=== PATIENT | female | born 1940 | race Caucasian/White ===

== ENCOUNTER 2018-09-13 12:32 | Inpatient (IN) | payer OTHER, MEDICARE, MEDICAID ==
[2018-09-13] MEDS: Nitroglycerin 50mg in D5W 50 MG/250 ML BOTTLE IV ONE ×2 (12:45→21:34)
[2018-09-13 13:06] VITALS: BMI 20.3
[2018-09-13] MEDS ORDERED: Eptifibatide 0.75 mg/ml 75 MG/100 ML BAG IV SCH (13:15)
[2018-09-13] MEDS ORDERED: Nitroglycerin 50mg in D5W 50 MG/250 ML BOTTLE IV ONE (13:18)
[2018-09-13] MEDS ORDERED: Sodium Chloride 0.9% 500 ML IV SCH (13:30)
[2018-09-13] MEDS ORDERED: Dextrose 50% SYRINGE Inj (50 ml) IV PRN (13:32)
[2018-09-13] MEDS ORDERED: Glucagon Recombinant 1 mg Inj IM PRN (13:32)
[2018-09-13 14:05] LABS: HEMOGLOBIN 14.4 g/dL (12.0-16.0); MEAN CELL VOLUME 89.5 fl (81.0-99.0); MEAN CORPUSCULAR HEMOGLOBIN 29.7 pg (27.0-31.0); MEAN CORPUSCULAR HGB CONC 33.1 g/dL (33.0-37.0); RBC 4.86 Mil/uL (3.80-5.20); RED CELL DISTRIBUTION WIDTH 14.2 % (11.5-14.5); WHITE BLOOD COUNT 23.5 K/uL (4.8-10.8)
[2018-09-13 14:17] LABS: ALB/GLOB RATIO 1.2 (1.0-2.1); CALCIUM 8.3 mg/dL (8.4-10.2)
[2018-09-13] MEDS ORDERED: Sodium Chloride 0.9% 1,000 ML IV SCH (14:30)
[2018-09-13] MEDS ORDERED: Propofol 10 mg/ml 1,000 MG/100 ML VIAL IV SCH (15:00)
--- NOTE | 2018-09-13 15:03 | RAD ---
Date of service: 09/13/2018 HISTORY: intubated, pulmonary edema COMPARISON: None available. TECHNIQUE: 1 view obtained. FINDINGS: LUNGS: Endotracheal tube is placed 4.7 cm above the osmar. Advancement 2-3 cm antegrade is advised. It terminates essentially at the upper level of the clavicles at this time. An orogastric tube is identified entering into the left upper quadrant abdomen with the termination off the image. Hazy density seen at the mid to inferior right lung zone and in the retrocardiac left base suspicious for pneumonia. Atelectasis may be present the left base instead. PLEURA: Borderline bilateral pleural effusion. No pneumothorax bilaterally. CARDIOVASCULAR: Calcific atherosclerotic changes are seen related to the thoracic aorta. Mild cardiomegaly is not excluded. [id number] pulmonary vascular congestion is difficult to exclude. OSSEOUS STRUCTURES: No significant abnormalities. VISUALIZED UPPER ABDOMEN: Normal. OTHER FINDINGS: None. IMPRESSION: Bilateral infiltrates are suggested at the bases though atelectasis may be present at the left. Mid right sided pulmonary infiltrate evident. Limited underlying pulmonary vascular congestion is not excluded. Further clinical correlation is advised. ET tube terminates well above the osmar and advancement 2-3 cm is advised follow-up by confirmation radiography.
[2018-09-13] MEDS ORDERED: Pneumococcal 23-Valent Vaccine IM ONE (15:29)
[2018-09-13] MEDS: Insulin Regular 100 units/ml SC SCH ×2 (16:35→23:00)
[2018-09-13] MEDS: Eptifibatide 0.75 mg/ml 75 MG/100 ML BAG IV SCH (16:51)
[2018-09-13 17:45] LABS: ABG ALLEN TEST YES; ARTERIAL BLOOD GAS HCO3 19.6 mmol/L (21-28); ARTERIAL BLOOD GAS O2 SAT 99.2 % (95-98); ARTERIAL BLOOD GAS PCO2 45 mm/Hg (35-45); ARTERIAL BLOOD GAS PH 7.26 (7.35-7.45); ARTERIAL BLOOD GAS PO2 116 mm/Hg (80-100); ARTERIAL BLOOD GAS TCO2 21.6 mmol/L (22-28)
--- NOTE | 2018-09-13 19:46 | PN ---
DATE: 09/13/2018 LOCATION: The patient in ICU, bed 423. TIME SPENT: 45 minutes. The patient is seen and evaluated at the bedside. Past medical, surgical, family, social history reviewed and discussed with family members. REASON FOR ADMISSION: Transferred from [facility] for management of hypothermia, status post cardiac arrest sustained secondary to acute NJ and pulmonary edema. SUBJECTIVE: An 78-year-old female with history significant for hypertension on amlodipine, labetalol and valsartan. Pressure well controlled on the above regimen. Complained of acutely short of breath in her home witnessed by her daughter. Daughter called the ambulance, on arrival EMS noted the patient to be unresponsive and in asystole. The patient was subsequently transported to emergency room at [facility] where initial evaluation showed her to be afebrile and hypertensive. Chest x-ray with florid pulmonary edema, troponin was elevated, BNP was noted to be high. EKG showed acute ST-elevation NJ. Code Heart was called. The patient underwent cardiac catheterization. 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 Underwent angioplasty of the two vessels and started on Integrilin, aspirin, Plavix, Tridil drip and transferred to [facility] intubated for hypothermia protocol. PAST MEDICAL HISTORY: As noted above. PAST SURGICAL HISTORY: Unremarkable. MEDICATIONS AT HOME: Noted the amlodipine, labetalol, and valsartan. In [facility], aspirin, Plavix, sodium chloride at 50 mL per hour, Tridil drip, Integrilin drip at 9 mL/hour. ALLERGIES: NONE DOCUMENTED. SOCIAL HISTORY: Unremarkable. PHYSICAL EXAMINATION: GENERAL: Elderly female, medium built, intubated orally, placed on mechanical ventilation. AC 20, 500, 100%, and PEEP of 5. Observed rate 31, observed minute ventilation 480, minute ventilation 14 liters, saturation 96%, peak airway pressure of 30, mean airway pressure of 9, end-tidal CO2 of 27. Sedated on Diprivan drip. VITAL SIGNS: Temperature 95.7, heart rate 105, blood pressure 134/89, mean arterial pressure 104, respiratory rate 30, oxygen saturation 95%. Intake 275, output 480, negative balance 205. Weight 130 pounds. HEAD, EYES, EARS, NOSE AND THROAT: Pupils are equal, round, reacting to light and accommodation. Extraocular muscles intact. Conjunctivae pink. Sclerae are white. NECK: Supple. Trachea central. CHEST: Bilateral breath sounds. Clear to auscultation anteriorly and laterally. HEART: Rhythm regular. S1, S2 normal intensity. No S3, S4 gallop. No audible murmur. ABDOMEN: Bowel sounds are present. Soft. Liver and spleen not palpable. Bladder not distended. EXTREMITIES: No clubbing, cyanosis or edema. NEUROLOGIC: Intermittently opens eyes, pupils 2 to 3 mm and poorly reactive. On sternal rub noted decorticate posturing. Minimal gag reflex on deep suctioning of the endotracheal tube. CURRENT MEDICATIONS: Aspirin 81 mg daily, Plavix 75 mg daily, Integrilin as per protocol, Accu-Chek with regular insulin coverage, Lopressor 25 mg p.o. every 12 hours, nitroglycerin drip at 5 mcg/minute, Protonix 40 daily, Diprivan at titrating to [place] scale 2. LABORATORY DATA: WBC 23.5, hemoglobin 14.4, hematocrit of 43.5, platelet count of 240. SMA-7: Sodium 135, potassium 3.8, chloride 99, CO2 of 19, blood urea nitrogen 18, creatinine 1.1, random glucose 222, calcium 8.3, magnesium 2, total bilirubin of 0.6, AST 1722, ALT 239, alkaline phosphatase 150, total protein 7.5, albumin of 4. TSH third-generation 4.7. Microbiology, none reported. Chest x-ray, endotracheal tube 4.7 cm above the osmar, repositioned, pushing down to 23 cm at lip level. Hazy density seen at the mid to inferior right lung zone and in the retrocardiac left base suspicious for pneumonia. Atelectasis may be present at the left base. EKG showed ST-segment elevation in anterior and lateral leads. Troponin elevated. IMPRESSION: 1. Neurologic: Status post cardiac arrest. Found unresponsive, asystolic in the field. 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 Noted to have minimal gag reflex. Pupils slight reactive, sluggish, decorticate posturing noted on sternal rub. 2. Pulmonary: Hypoxic respiratory failure, acute pulmonary edema, intubated, placed on mechanical ventilation. Lasix 20 mg intravenous push x1. 3. Cardiac: Status post cardiac arrest, acute anterolateral ST-segment elevation, status post code heart cath shows left anterior descending and left circumflex occlusion, status post angioplasty. On aspirin, Plavix, Integrilin, and Tridil. 4. Gastrointestinal: Elevated liver enzymes secondary to possible ischemic hepatitis, status post cardiac arrest. 5. Renal: No acute issues noted. Monitor for further renal compromise. Continue intravenous hydration with normal saline at 50 mL/hour. 6. Hematology: Leukocytosis reactive versus the infarction, suspect aspiration pneumonia given the vomiting preceding the cardiac arrest. We will initiate Zosyn 3.375 g IV every 6 hours. Keep head of bed 30 degrees up, sedate, monitor ABG, maintain pCO2 around 30. Continue sedation. DVT prophylaxis. Continue hypothermia protocol for the next 24 hours. Geovanny Wise MD
[2018-09-13] MEDS ORDERED: Sodium Chloride 0.9% 250 ML IV SCH (20:00)
[2018-09-13] MEDS: Piperacillin/Tazobact 3.375 GM in Sodium Chloride 0.9% 100 ML IVPB SCH (21:09)
[2018-09-13 21:48] LABS: ABG ALLEN TEST YES; ARTERIAL BLOOD GAS HCO3 19.5 mmol/L (21-28); ARTERIAL BLOOD GAS HEMOGLOBIN 12.3 g/dL (11.7-17.4); ARTERIAL BLOOD GAS O2 CAPACITY 17.2 mL/dL (16-24); ARTERIAL BLOOD GAS PCO2 43 mm/Hg (35-45); ARTERIAL BLOOD GAS PH 7.27 (7.35-7.45); ARTERIAL BLOOD GAS PO2 129 mm/Hg (80-100)
[2018-09-13] MEDS: Lactated Ringer's 1,000 ML IV SCH (22:15)
[2018-09-14] MEDS: Eptifibatide 0.75 mg/ml 75 MG/100 ML BAG IV SCH ×3 (03:00→23:04)
--- NOTE | 2018-09-14 03:55 | PCM.PROC ---
Procedures Attestation:: I certify that I have explained the specified Operation(s) or Procedure(s), risks, benefits and reasonable alternatives to the Patient and/or other person responsible. The opportunity was given to ask questions and all questions answered - Central Line Placement Left Femoral Triple Lumen Catheter Aseptic technique was employed throughout the procedure: Hand Hygiene done prior to procedure, Full sterile barriers (mask, hair cover, sterile gown, sterile gloves), Full body sterile drape, Chloraprep Antiseptic: 2 minute prep for Femoral CVP Time Out Performed: Yes Pt. Placed on Pulse Ox Monitor: Yes Central Line Prep: Chlorhexidine-Alcohol Combination Local Anesthesia Used: Lidocaine 2% Amount of Anesthesia Used (mls): 3 Ultrasound Used for Placement: Yes Central Line Lumen Inserted: triple Post Procedure: Sutured in Place, Good Blood Return, All Ports Aspirated, Flushed, Capped, Sterile Dressing Applied Secured by: Suture Post procedure dressing: Clear vapor permeable Post Procedure X-Ray: Yes Patient Tolerated Procedure: Well Immediate Complications: None
[2018-09-14] MEDS: Piperacillin/Tazobact 3.375 GM in Sodium Chloride 0.9% 100 ML IVPB SCH ×4 (04:00→21:07)
[2018-09-14 04:25] LABS: ABG ALLEN TEST YES; ARTERIAL BLOOD GAS HCO3 14.5 mmol/L (21-28); ARTERIAL BLOOD GAS HEMOGLOBIN 11.5 g/dL (11.7-17.4); ARTERIAL BLOOD GAS O2 CAPACITY 16.1 mL/dL (16-24); ARTERIAL BLOOD GAS O2 CONTENT 15.9 ML/dL (15-23); ARTERIAL BLOOD GAS O2 SAT 98.5 % (95-98); ARTERIAL BLOOD GAS PCO2 35 mm/Hg (35-45); ARTERIAL BLOOD GAS PO2 120 mm/Hg (80-100); ARTERIAL BLOOD GAS TCO2 14.8 mmol/L (22-28)
[2018-09-14 05:25] LABS: ALBUMIN 2.6 g/dL (3.5-5.0); BILIRUBIN,DIRECT 0.3 mg/ml (0.0-0.4); CALCIUM 7.8 mg/dL (8.4-10.2)
[2018-09-14 06:15] LABS: ABG ALLEN TEST YES; ARTERIAL BLOOD GAS HCO3 14.7 mmol/L (21-28); ARTERIAL BLOOD GAS HEMOGLOBIN 11.6 g/dL (11.7-17.4); ARTERIAL BLOOD GAS O2 CAPACITY 16.4 mL/dL (16-24); ARTERIAL BLOOD GAS O2 CONTENT 16.3 ML/dL (15-23); ARTERIAL BLOOD GAS O2 SAT 99.5 % (95-98); ARTERIAL BLOOD GAS PCO2 28 mm/Hg (35-45); ARTERIAL BLOOD GAS PH 7.26 (7.35-7.45); ARTERIAL BLOOD GAS PO2 177 mm/Hg (80-100); ARTERIAL BLOOD GAS TCO2 13.5 mmol/L (22-28)
[2018-09-14] MEDS: Lactated Ringer's 1,000 ML IV SCH (06:15)
[2018-09-14] MEDS: Insulin Regular 100 units/ml SC SCH ×4 (06:18→22:06)
--- NOTE | 2018-09-14 06:33 | CP.PCM.PN ---
Subjective - Date & Time of Evaluation Date of Evaluation: 09/13/18 Time of Evaluation: 11:30 - Subjective Subjective: This evening, patient became extremely bradycardic (to 30s) and hypotensive (SBP 60s). Discussed placement of central line to initiate pressors with daughter, who is in agreement with procedure. In preparing to do procedure, because pat ient became extremely bradycardic and hypotensive, 1 amp of epinephrine was given. A/P: Place L femoral TLC, initiate levophed. Stop Nitro gtt. Stop metoprolol. Objective - Vital Signs/Intake and Output Vital Signs (last 24 hours): Temp Pulse Resp BP Pulse Ox 93.2 F L 90 33 H 133/73 100 09/13/18 20:30 09/13/18 21:24 09/13/18 20:30 09/13/18 21:24 09/13/18 20:30 Intake and Output: 09/13/18 09/14/18 18:59 06:59 Intake Total 725 106 Output Total 515 10 Balance 210 96 - Medications Medications: Current Medications Aspirin (Aspirin Chewable) 81 mg PO DAILY REPLACED BY [facility] Clopidogrel Bisulfate (Plavix) 75 mg PO DAILY REPLACED BY [facility] Dextrose (Dextrose 50% Inj) 0 ml IV STAT PRN; Protocol PRN Reason: Hypoglycemia Protocol Dextrose (Glutose 15) 0 gm PO ONCE PRN; Protocol PRN Reason: Hypoglycemia Protocol Glucagon (Glucagen Diagnostic Kit) 0 mg IM STAT PRN; Protocol PRN Reason: Hypoglycemia Protocol Propofol (Diprivan) 1,000 mg in 100 mls @ 1.769 mls/hr IV .Q24H REPLACED BY [facility]; Protocol Stop: 09/14/18 14:56 Last Admin: 09/13/18 15:00 Dose: 5 mcg/kg/min, 1.769 mls/hr Eptifibatide (Integrilin) 75 mg in 100 mls @ 9.435 mls/hr IV .[id number] REPLACED BY [facility]; Protocol Last Admin: 09/14/18 03:00 Dose: 9.435 mls/hr Piperacillin Sod/Tazobactam (Sod 3.375 gm/ Sodium Chloride) 100 mls @ 100 mls/hr IVPB Q6 THU; Protocol Last Admin: 09/14/18 04:00 Dose: 100 mls/hr Sodium Chloride (Sodium Chloride 0.9%) 250 mls @ 250 mls/hr IV .Q1H THU Stop: 09/14/18 19:54 Last Admin: 09/13/18 20:00 Dose: 250 mls/hr Lactated Ringer's (Lactated Ringer's) 1,000 mls @ 150 mls/hr IV .[id number] THU Last Admin: 09/14/18 06:15 Dose: 150 mls/hr Norepinephrine Bitartrate 8 mg (/ Dextrose) 258 mls @ 19.35 mls/hr IV .[id number] ONE; Protocol Stop: 09/14/18 19:42 Insulin Human Regular (Humulin R) 2 units SC ACCU-CHECK REPLACED BY [facility]; Protocol Last Admin: 09/14/18 06:18 Dose: 1 unit Pantoprazole Sodium (Protonix Inj) 40 mg IVP DAILY REPLACED BY [facility] Last Admin: 09/13/18 15:37 Dose: 40 mg - Labs Labs: 09/13/18 13:50 09/14/18 00:20 PT Cancelled 09/13/18 00:25 INR Cancelled 09/13/18 00:25 APTT Cancelled 09/13/18 00:25
[2018-09-14 06:39] LABS: BASO % 0.1 % (0.0-2.0); HEMOGLOBIN 11.4 g/dL (12.0-16.0); LYMPH # 1.8 K/uL (1.0-4.3); LYMPH % 8.7 % (20.0-40.0); MEAN CELL VOLUME 88.8 fl (81.0-99.0); MEAN CORPUSCULAR HEMOGLOBIN 29.1 pg (27.0-31.0); MEAN CORPUSCULAR HGB CONC 32.8 g/dL (33.0-37.0); MEAN PLATELET VOLUME 10.1 fl (7.2-11.7); MONO # 0.7 K/uL (0.0-0.8); MONO % 3.2 % (0.0-10.0); NEUT # 17.8 K/uL (1.8-7.0); PLATELET COUNT 163 K/uL (130-400); RBC 3.91 Mil/uL (3.80-5.20); RED CELL DISTRIBUTION WIDTH 14.1 % (11.5-14.5); WHITE BLOOD COUNT 20.2 K/uL (4.8-10.8)
[2018-09-14 06:44] LABS: INR 1.2; PROTHROMBIN TIME 13.4 Seconds (9.8-13.1)
[2018-09-14 06:47] LABS: PARTIAL THROMBOPLASTIN TIME 33.5 Seconds (25.6-37.1)
[2018-09-14 07:17] LABS: BASO % 0.2 % (0.0-2.0); HEMOGLOBIN 10.9 g/dL (12.0-16.0); LYMPH # 2.3 K/uL (1.0-4.3); LYMPH % 12.2 % (20.0-40.0); MEAN CELL VOLUME 90.7 fl (81.0-99.0); MEAN CORPUSCULAR HEMOGLOBIN 28.6 pg (27.0-31.0); MEAN CORPUSCULAR HGB CONC 31.6 g/dL (33.0-37.0); MEAN PLATELET VOLUME 10.2 fl (7.2-11.7); MONO # 0.6 K/uL (0.0-0.8); MONO % 3.3 % (0.0-10.0); NEUT # 15.8 K/uL (1.8-7.0); NEUT % 84.3 % (50.0-75.0); RBC 3.81 Mil/uL (3.80-5.20); WHITE BLOOD COUNT 18.7 K/uL (4.8-10.8)
[2018-09-14 07:29] LABS: INR 1.2; PARTIAL THROMBOPLASTIN TIME 38.1 Seconds (25.6-37.1); PROTHROMBIN TIME 13.2 Seconds (9.8-13.1)
[2018-09-14 07:34] LABS: ALBUMIN 2.9 g/dL (3.5-5.0); CALCIUM 8.2 mg/dL (8.4-10.2)
[2018-09-14 08:11] LABS: LYMPHOCYTE 6 % (20-50); MONOCYTE 2 % (0-10); NEUTROPHIL 92 % (42-75); PLATELET ESTIMATE NORMAL (NORMAL); TOTAL CELLS COUNTED 100
[2018-09-14 08:12] LABS: ANISOCYTOSIS SLIGHT; LARGE PLATELETS PRESENT; OVALOCYTES MODERATE
--- NOTE | 2018-09-14 10:10 | CP.CCUPN ---
<Jahaira Hickey - Last Filed: 09/14/18 16:14> CCU Subjective - Physician Review Events Since Last Encounter (Free Text): Patient was seen/examined this am and discussed in rounds. 78 yo F with hx controlled htn (as per family), in ICU s/p cardiac arrest and cardiac cath yesterday morning at [facility], currently undergoing hypothermia protocol. VBG done 10 am today showed venous saturation of O2 low at 22.4. Last troponin 6 am 484 (midnight trop was 659) Cardiology consulted on the case. Physical Exam: Gen: elderly female, intubated and sedated with proporol, with cooling blanket and cooling wraps on body; unresponsive to verbal/tactile and painful stimuli HEENT: pupils equal and reactive, intubated Resp: bilateral breath sounds present CV: S1,S2, bradycardic Abdomen: soft, nontender Ext: no edema appreciated Vent Settings: AC PRVC RR 24, TV 500, FiO2 80%, PEEP 5 I/O: positive balance with low urine output - 3-10 ml/hr since 2 pm yesterday Assessment/Plan: s/p Cardiac Arrest - S/p cardiac arrest at home on 09/13/18; ROSC achieved; taken to laboratory machinist at [facility] with 2 stents deployed - Hypothermia protocol in progress; due to finish 24 hours at 1 pm , plan to stop cooling 1 pm - Troponin at 1 pm - VBG done 10 am showed sVO2 22.4 - start dobutamine at 5 mcg/hr and repeat VBG at 130 pm - Plavix, aspirin - Integrillin - On levophed - Prognosis remains guarded. Discussed plan to stop cooling 1 pm with family at bedside. - Re-eval of neuro status after rewarming. Pulmonary Edema - Lasix 60 mg IVP once - Echocardiogram today - Hold fluids Oliguria -Lasix 60 mg IVP Leukocytosis - May be reactive vs infectious - Continue zosyn Prophylaxis - Protonix IVP daily - SCDs Pt seen/discussed w/ Dr. Rocha. CCU Objective - Vital Signs / Intake & Output Vital Signs (Last 4 hours): Vital Signs Temp Temp Pulse Pulse Resp Resp BP 09/14/18 10:00 91.6 F L 42 L 25 H 122/92 H 09/14/18 09:21 100/67 09/14/18 08:56 93.2 F L 54 L 32 H 100/67 09/14/18 08:00 93.2 F L 93.2 F L 57 L 59 L 33 H 27 H 105/54 L 09/14/18 07:00 93.2 F L 60 33 H 100/54 L BP Pulse Ox 09/14/18 10:00 94 L 09/14/18 09:21 09/14/18 08:56 94 L 09/14/18 08:00 105/54 L 95 09/14/18 07:00 96 Intake and Output (Last 8hrs): Intake & Output 09/13/18 09/14/18 09/14/18 22:59 06:59 14:59 Intake Total 875 1200 708 Output Total 95 49 30 Balance 780 1151 678 Weight 143 lb 3.2 oz Intake: IV 775 1100 608 Intake, Piggyback 100 100 100 Output: Urine 95 49 30 Urethral (Scott) 95 49 30 - Medications Active Medications: Active Medications Generic Name Dose Route Start Last Admin Trade Name Freq PRN Reason Stop Dose Admin Aspirin 81 mg 09/14/18 09:00 09/14/18 08:12 Aspirin Chewable PO 81 mg DAILY THU Administration Clopidogrel Bisulfate 75 mg 09/14/18 09:00 09/14/18 08:12 Plavix PO 75 mg DAILY THU Administration Dextrose 0 ml 09/13/18 13:32 Dextrose 50% Inj IV STAT PRN Hypoglycemia Protocol Protocol Dextrose 0 gm 09/13/18 13:32 Glutose 15 PO ONCE PRN Hypoglycemia Protocol Protocol Glucagon 0 mg 09/13/18 13:32 Glucagen Diagnostic Kit IM STAT PRN Hypoglycemia Protocol Protocol Propofol 1,000 mg in 100 mls @ 1.769 mls/hr 09/13/18 15:00 09/13/18 15:00 Diprivan IV 09/14/18 14:56 5 mcg/kg/min .Q24H THU 1.769 mls/hr Administration Protocol 5 MCG/KG/MIN Eptifibatide 75 mg in 100 mls @ 9.435 mls/hr 09/13/18 16:15 09/14/18 03:00 Integrilin IV 9.435 mls/hr .[id number] THU Administration Protocol 2 MCG/KG/MIN Piperacillin Sod/Tazobactam 100 mls @ 100 mls/hr 09/13/18 22:00 09/14/18 09:00 Sod 3.375 gm/ Sodium Chloride IVPB 100 mls/hr Q6 THU Administration Protocol Sodium Chloride 250 mls @ 250 mls/hr 09/13/18 20:00 09/13/18 20:00 Sodium Chloride 0.9% IV 09/14/18 19:54 250 mls/hr .Q1H THU Administration Lactated Ringer's 1,000 mls @ 150 mls/hr 09/13/18 22:15 09/14/18 06:15 Lactated Ringer's IV 150 mls/hr .[id number] THU Administration Norepinephrine Bitartrate 8 mg 258 mls @ 19.35 mls/hr 09/14/18 06:23 09/14/18 09:19 / Dextrose IV 09/14/18 19:42 12.5 mcg/min .[id number] ONE 24.19 mls/hr Titration Protocol 10 MCG/MIN Insulin Human Regular 2 units 09/13/18 17:00 09/14/18 06:18 Humulin R SC 1 unit ACCU-CHECK THU Administration Protocol Pantoprazole Sodium 40 mg 09/13/18 13:30 09/14/18 08:06 Protonix Inj IVP 40 mg DAILY THU Administration - Patient Studies Lab Studies: Lab Studies 09/14/18 09/14/18 09/14/18 Range/Units 12:30 06:11 06:10 WBC RBC Hgb Hct MCV MCH MCHC RDW Plt Count MPV (7.2-11.7) fl Neut % (Auto) (50.0-75.0) % Lymph % (Auto) (20.0-40.0) % Baxter % (Auto) (0.0-10.0) % Eos % (Auto) (0.0-4.0) % Baso % (Auto) (0.0-2.0) % Neut # (Auto) (1.8-7.0) K/uL Lymph # (Auto) (1.0-4.3) K/uL Baxter # (Auto) (0.0-0.8) K/uL Eos # (Auto) (0.0-0.7) K/uL Baso # (Auto) (0.0-0.2) K/uL Neutrophils % (Manual) (42-75) % Lymphocytes % (Manual) (20-50) % Monocytes % (Manual) (0-10) % Platelet Estimate (NORMAL) Large Platelets Anisocytosis (manual) Macrocytosis (manual) Ovalocytes PT INR APTT pCO2 28 L (35-45) mm/Hg pO2 177 H (80-100) mm/Hg HCO3 14.7 L (21-28) mmol/L ABG pH 7.26 L (7.35-7.45) ABG Total CO2 13.5 L (22-28) mmol/L ABG O2 Saturation 99.5 H (95-98) % ABG O2 Content 16.3 (15-23) ML/dL ABG Base Excess -13.1 L (-2.0-3.0) mmol/L ABG Hemoglobin 11.6 L (11.7-17.4) g/dL ABG Carboxyhemoglobin 1.0 (0.5-1.5) % POC ABG HHb (Measured) 0.5 (0.0-5.0) % ABG Methemoglobin 1.1 (0.0-3.0) % ABG O2 Capacity 16.4 (16-24) mL/dL Davy Test Yes ABG Potassium (3.6-5.2) mmol/L A-a O2 Difference 501.0 mm/Hg Hgb O2 Saturation 97.4 (95.0-98.0) % Glucose (65-105) mg/dL Lactate (0.7-2.1) mmol/L Vent Mode A/c Mechanical Rate 24 FiO2 100.0 % Tidal Volume 500 PEEP 5 Crit Value Called To Crit Value Called By Crit Value Read Back Blood Gas Notified Time Sodium Potassium Chloride Carbon Dioxide Anion Gap BUN Creatinine Est GFR ( Amer) Est GFR (Non-Af Amer) Random Glucose Lactic Acid 7.6 H* Calcium Magnesium Total Bilirubin Direct Bilirubin AST ALT Alkaline Phosphatase Ammonia 25 (9-33) umol/L Troponin I Total Protein Albumin Globulin Albumin/Globulin Ratio TSH 3rd Generation (0.46-4.68) mIU/ML Arterial Blood Potassium (3.6-5.2) mmol/L 09/14/18 09/14/18 09/14/18 Range/Units 06:10 06:10 06:10 WBC 20.2 H RBC 3.91 Hgb 11.4 L Hct 34.7 MCV 88.8 MCH 29.1 MCHC 32.8 L RDW 14.1 Plt Count 163 MPV 10.1 (7.2-11.7) fl Neut % (Auto) 88.0 H (50.0-75.0) % Lymph % (Auto) 8.7 L (20.0-40.0) % Baxter % (Auto) 3.2 (0.0-10.0) % Eos % (Auto) 0.0 (0.0-4.0) % Baso % (Auto) 0.1 (0.0-2.0) % Neut # (Auto) 17.8 H (1.8-7.0) K/uL Lymph # (Auto) 1.8 (1.0-4.3) K/uL Baxter # (Auto) 0.7 (0.0-0.8) K/uL Eos # (Auto) 0.0 (0.0-0.7) K/uL Baso # (Auto) 0.0 (0.0-0.2) K/uL Neutrophils % (Manual) 92 H (42-75) % Lymphocytes % (Manual) 6 L (20-50) % Monocytes % (Manual) 2 (0-10) % Platelet Estimate Normal (NORMAL) Large Platelets Present Anisocytosis (manual) Slight Macrocytosis (manual) Slight Ovalocytes Moderate PT 13.4 H INR 1.2 APTT 33.5 pCO2 (35-45) mm/Hg pO2 (80-100) mm/Hg HCO3 (21-28) mmol/L ABG pH (7.35-7.45) ABG Total CO2 (22-28) mmol/L ABG O2 Saturation (95-98) % ABG O2 Content (15-23) ML/dL ABG Base Excess (-2.0-3.0) mmol/L ABG Hemoglobin (11.7-17.4) g/dL ABG Carboxyhemoglobin (0.5-1.5) % POC ABG HHb (Measured) (0.0-5.0) % ABG Methemoglobin (0.0-3.0) % ABG O2 Capacity (16-24) mL/dL Davy Test ABG Potassium (3.6-5.2) mmol/L A-a O2 Difference mm/Hg Hgb O2 Saturation (95.0-98.0) % Glucose (65-105) mg/dL Lactate (0.7-2.1) mmol/L Vent Mode Mechanical Rate FiO2 % Tidal Volume PEEP Crit Value Called To Crit Value Called By Crit Value Read Back Blood Gas Notified Time Sodium 129 L Potassium 4.9 Chloride 99 Carbon Dioxide 17 L Anion Gap 18 BUN 28 H Creatinine 1.7 H Est GFR ( Amer) 35 Est GFR (Non-Af Amer) 29 Random Glucose 125 H Lactic Acid Calcium 8.2 L Magnesium 2.0 Total Bilirubin 0.9 Direct Bilirubin 0.0 AST 1312 H ALT 188 H Alkaline Phosphatase 70 Ammonia (9-33) umol/L Troponin I 484.0000 H* Total Protein 5.7 L Albumin 2.9 L Globulin 2.8 Albumin/Globulin Ratio 1.0 TSH 3rd Generation (0.46-4.68) mIU/ML Arterial Blood Potassium (3.6-5.2) mmol/L 09/14/18 09/14/18 09/14/18 Range/Units 01:43 00:20 00:20 WBC RBC Hgb Hct MCV MCH MCHC RDW Plt Count MPV (7.2-11.7) fl Neut % (Auto) (50.0-75.0) % Lymph % (Auto) (20.0-40.0) % Baxter % (Auto) (0.0-10.0) % Eos % (Auto) (0.0-4.0) % Baso % (Auto) (0.0-2.0) % Neut # (Auto) (1.8-7.0) K/uL Lymph # (Auto) (1.0-4.3) K/uL Baxter # (Auto) (0.0-0.8) K/uL Eos # (Auto) (0.0-0.7) K/uL Baso # (Auto) (0.0-0.2) K/uL Neutrophils % (Manual) (42-75) % Lymphocytes % (Manual) (20-50) % Monocytes % (Manual) (0-10) % Platelet Estimate (NORMAL) Large Platelets Anisocytosis (manual) Macrocytosis (manual) Ovalocytes PT 13.2 H INR 1.2 APTT 38.1 H pCO2 35 (35-45) mm/Hg pO2 120 H (80-100) mm/Hg HCO3 14.5 L (21-28) mmol/L ABG pH 7.20 L (7.35-7.45) ABG Total CO2 14.8 L (22-28) mmol/L ABG O2 Saturation 98.5 H (95-98) % ABG O2 Content 15.9 (15-23) ML/dL ABG Base Excess -13.4 L (-2.0-3.0) mmol/L ABG Hemoglobin 11.5 L (11.7-17.4) g/dL ABG Carboxyhemoglobin 0.7 (0.5-1.5) % POC ABG HHb (Measured) 1.5 (0.0-5.0) % ABG Methemoglobin 0.9 (0.0-3.0) % ABG O2 Capacity 16.1 (16-24) mL/dL Davy Test Yes ABG Potassium (3.6-5.2) mmol/L A-a O2 Difference 549.0 mm/Hg Hgb O2 Saturation 97.0 (95.0-98.0) % Glucose (65-105) mg/dL Lactate (0.7-2.1) mmol/L Vent Mode A/c Mechanical Rate 24 FiO2 100.0 % Tidal Volume 500 PEEP 5 Crit Value Called To Dr kendall butler Crit Value Called By Jamie Crit Value Read Back Y Blood Gas Notified Time 200 Sodium Potassium Chloride Carbon Dioxide Anion Gap BUN Creatinine Est GFR ( Amer) Est GFR (Non-Af Amer) Random Glucose Lactic Acid 10.0 H* Calcium Magnesium Total Bilirubin Direct Bilirubin AST ALT Alkaline Phosphatase Ammonia (9-33) umol/L Troponin I Total Protein Albumin Globulin Albumin/Globulin Ratio TSH 3rd Generation (0.46-4.68) mIU/ML Arterial Blood Potassium (3.6-5.2) mmol/L 09/14/18 09/14/18 09/13/18 Range/Units 00:20 00:20 21:45 WBC 18.7 H RBC 3.81 Hgb 10.9 L D Hct 34.6 MCV 90.7 MCH 28.6 MCHC 31.6 L RDW 14.0 Plt Count 155 MPV 10.2 (7.2-11.7) fl Neut % (Auto) 84.3 H (50.0-75.0) % Lymph % (Auto) 12.2 L (20.0-40.0) % Baxter % (Auto) 3.3 (0.0-10.0) % Eos % (Auto) 0.0 (0.0-4.0) % Baso % (Auto) 0.2 (0.0-2.0) % Neut # (Auto) 15.8 H (1.8-7.0) K/uL Lymph # (Auto) 2.3 (1.0-4.3) K/uL Baxter # (Auto) 0.6 (0.0-0.8) K/uL Eos # (Auto) 0.0 (0.0-0.7) K/uL Baso # (Auto) 0.0 (0.0-0.2) K/uL Neutrophils % (Manual) (42-75) % Lymphocytes % (Manual) (20-50) % Monocytes % (Manual) (0-10) % Platelet Estimate (NORMAL) Large Platelets Anisocytosis (manual) Macrocytosis (manual) Ovalocytes PT INR APTT pCO2 43 (35-45) mm/Hg pO2 129 H (80-100) mm/Hg HCO3 19.5 L (21-28) mmol/L ABG pH 7.27 L (7.35-7.45) ABG Total CO2 21.0 L (22-28) mmol/L ABG O2 Saturation 99.0 H (95-98) % ABG O2 Content 17.0 (15-23) ML/dL ABG Base Excess -6.9 L (-2.0-3.0) mmol/L ABG Hemoglobin 12.3 (11.7-17.4) g/dL ABG Carboxyhemoglobin 0.9 (0.5-1.5) % POC ABG HHb (Measured) 1.0 (0.0-5.0) % ABG Methemoglobin 1.1 (0.0-3.0) % ABG O2 Capacity 17.2 (16-24) mL/dL Davy Test Yes ABG Potassium (3.6-5.2) mmol/L A-a O2 Difference 530.0 mm/Hg Hgb O2 Saturation 97.0 (95.0-98.0) % Glucose (65-105) mg/dL Lactate (0.7-2.1) mmol/L Vent Mode A/c Mechanical Rate 24 FiO2 100.0 % Tidal Volume 500 PEEP 5 Crit Value Called To Crit Value Called By Crit Value Read Back Blood Gas Notified Time Sodium 132 Potassium 4.3 Chloride 98 Carbon Dioxide 18 L Anion Gap 20 BUN 25 H Creatinine 1.6 H Est GFR ( Amer) 38 Est GFR (Non-Af Amer) 31 Random Glucose 270 H Lactic Acid Calcium 7.8 L Magnesium 2.2 Total Bilirubin 0.4 Direct Bilirubin 0.3 AST 1290 H ALT 177 H D Alkaline Phosphatase 68 Ammonia (9-33) umol/L Troponin I 659.0000 H* Total Protein 5.3 L Albumin 2.6 L D Globulin 2.7 Albumin/Globulin Ratio 1.0 TSH 3rd Generation (0.46-4.68) mIU/ML Arterial Blood Potassium (3.6-5.2) mmol/L 09/13/18 09/13/18 09/13/18 Range/Units 17:41 13:50 13:50 WBC 23.5 H RBC 4.86 Hgb 14.4 Hct 43.5 MCV 89.5 MCH 29.7 MCHC 33.1 RDW 14.2 Plt Count 240 MPV (7.2-11.7) fl Neut % (Auto) (50.0-75.0) % Lymph % (Auto) (20.0-40.0) % Baxter % (Auto) (0.0-10.0) % Eos % (Auto) (0.0-4.0) % Baso % (Auto) (0.0-2.0) % Neut # (Auto) (1.8-7.0) K/uL Lymph # (Auto) (1.0-4.3) K/uL Baxter # (Auto) (0.0-0.8) K/uL Eos # (Auto) (0.0-0.7) K/uL Baso # (Auto) (0.0-0.2) K/uL Neutrophils % (Manual) (42-75) % Lymphocytes % (Manual) (20-50) % Monocytes % (Manual) (0-10) % Platelet Estimate (NORMAL) Large Platelets Anisocytosis (manual) Macrocytosis (manual) Ovalocytes PT INR APTT pCO2 45 (35-45) mm/Hg pO2 116 H (80-100) mm/Hg HCO3 19.6 L (21-28) mmol/L ABG pH 7.26 L (7.35-7.45) ABG Total CO2 21.6 L (22-28) mmol/L ABG O2 Saturation 99.2 H (95-98) % ABG O2 Content (15-23) ML/dL ABG Base Excess -6.8 L (-2.0-3.0) mmol/L ABG Hemoglobin (11.7-17.4) g/dL ABG Carboxyhemoglobin (0.5-1.5) % POC ABG HHb (Measured) (0.0-5.0) % ABG Methemoglobin (0.0-3.0) % ABG O2 Capacity (16-24) mL/dL Davy Test Yes ABG Potassium 4.1 (3.6-5.2) mmol/L A-a O2 Difference 541.0 mm/Hg Hgb O2 Saturation (95.0-98.0) % Glucose 144 H (65-105) mg/dL Lactate 4.4 H* (0.7-2.1) mmol/L Vent Mode A/c Mechanical Rate 24 FiO2 100.0 % Tidal Volume 500 PEEP 5 Crit Value Called To Dr behzad briggs Crit Value Called By 6027 Crit Value Read Back Y Blood Gas Notified Time 1744 Sodium 134.0 135 Potassium 3.8 Chloride 102.0 99 Carbon Dioxide 19 L Anion Gap 21 H BUN 18 H Creatinine 1.1 Est GFR ( Amer) 58 Est GFR (Non-Af Amer) 48 Random Glucose 222 H Lactic Acid Calcium 8.3 L Magnesium 2.0 Total Bilirubin 0.6 Direct Bilirubin AST 1722 H ALT 239 H Alkaline Phosphatase 115 Ammonia (9-33) umol/L Troponin I Total Protein 7.5 Albumin 4.0 Globulin 3.5 Albumin/Globulin Ratio 1.2 TSH 3rd Generation 4.70 H (0.46-4.68) mIU/ML Arterial Blood Potassium 4.1 (3.6-5.2) mmol/L 09/13/18 09/13/18 09/13/18 Range/Units 00:25 00:25 00:25 WBC RBC Hgb Hct MCV MCH MCHC RDW Plt Count MPV (7.2-11.7) fl Neut % (Auto) (50.0-75.0) % Lymph % (Auto) (20.0-40.0) % Baxter % (Auto) (0.0-10.0) % Eos % (Auto) (0.0-4.0) % Baso % (Auto) (0.0-2.0) % Neut # (Auto) (1.8-7.0) K/uL Lymph # (Auto) (1.0-4.3) K/uL Baxter # (Auto) (0.0-0.8) K/uL Eos # (Auto) (0.0-0.7) K/uL Baso # (Auto) (0.0-0.2) K/uL Neutrophils % (Manual) (42-75) % Lymphocytes % (Manual) (20-50) % Monocytes % (Manual) (0-10) % Platelet Estimate (NORMAL) Large Platelets Anisocytosis (manual) Macrocytosis (manual) Ovalocytes PT Cancelled INR Cancelled APTT Cancelled pCO2 (35-45) mm/Hg pO2 (80-100) mm/Hg HCO3 (21-28) mmol/L ABG pH (7.35-7.45) ABG Total CO2 (22-28) mmol/L ABG O2 Saturation (95-98) % ABG O2 Content (15-23) ML/dL ABG Base Excess (-2.0-3.0) mmol/L ABG Hemoglobin (11.7-17.4) g/dL ABG Carboxyhemoglobin (0.5-1.5) % POC ABG HHb (Measured) (0.0-5.0) % ABG Methemoglobin (0.0-3.0) % ABG O2 Capacity (16-24) mL/dL Davy Test ABG Potassium (3.6-5.2) mmol/L A-a O2 Difference mm/Hg Hgb O2 Saturation (95.0-98.0) % Glucose (65-105) mg/dL Lactate (0.7-2.1) mmol/L Vent Mode Mechanical Rate FiO2 % Tidal Volume PEEP Crit Value Called To Crit Value Called By Crit Value Read Back Blood Gas Notified Time Sodium Cancelled Potassium Cancelled Chloride Cancelled Carbon Dioxide Cancelled Anion Gap Cancelled BUN Cancelled Creatinine Cancelled Est GFR ( Amer) Cancelled Est GFR (Non-Af Amer) Cancelled Random Glucose Cancelled Lactic Acid Cancelled Calcium Cancelled Magnesium Cancelled Total Bilirubin Cancelled Direct Bilirubin Cancelled AST Cancelled ALT Cancelled Alkaline Phosphatase Cancelled Ammonia (9-33) umol/L Troponin I Cancelled Total Protein Cancelled Albumin Cancelled Globulin Cancelled Albumin/Globulin Ratio Cancelled TSH 3rd Generation (0.46-4.68) mIU/ML Arterial Blood Potassium (3.6-5.2) mmol/L 09/13/18 Range/Units 00:25 WBC Cancelled RBC Cancelled Hgb Cancelled Hct Cancelled MCV Cancelled MCH Cancelled MCHC Cancelled RDW Cancelled Plt Count Cancelled MPV (7.2-11.7) fl Neut % (Auto) (50.0-75.0) % Lymph % (Auto) (20.0-40.0) % Baxter % (Auto) (0.0-10.0) % Eos % (Auto) (0.0-4.0) % Baso % (Auto) (0.0-2.0) % Neut # (Auto) (1.8-7.0) K/uL Lymph # (Auto) (1.0-4.3) K/uL Baxter # (Auto) (0.0-0.8) K/uL Eos # (Auto) (0.0-0.7) K/uL Baso # (Auto) (0.0-0.2) K/uL Neutrophils % (Manual) (42-75) % Lymphocytes % (Manual) (20-50) % Monocytes % (Manual) (0-10) % Platelet Estimate (NORMAL) Large Platelets Anisocytosis (manual) Macrocytosis (manual) Ovalocytes PT INR APTT pCO2 (35-45) mm/Hg pO2 (80-100) mm/Hg HCO3 (21-28) mmol/L ABG pH (7.35-7.45) ABG Total CO2 (22-28) mmol/L ABG O2 Saturation (95-98) % ABG O2 Content (15-23) ML/dL ABG Base Excess (-2.0-3.0) mmol/L ABG Hemoglobin (11.7-17.4) g/dL ABG Carboxyhemoglobin (0.5-1.5) % POC ABG HHb (Measured) (0.0-5.0) % ABG Methemoglobin (0.0-3.0) % ABG O2 Capacity (16-24) mL/dL Davy Test ABG Potassium (3.6-5.2) mmol/L A-a O2 Difference mm/Hg Hgb O2 Saturation (95.0-98.0) % Glucose (65-105) mg/dL Lactate (0.7-2.1) mmol/L Vent Mode Mechanical Rate FiO2 % Tidal Volume PEEP Crit Value Called To Crit Value Called By Crit Value Read Back Blood Gas Notified Time Sodium Potassium Chloride Carbon Dioxide Anion Gap BUN Creatinine Est GFR ( Amer) Est GFR (Non-Af Amer) Random Glucose Lactic Acid Calcium Magnesium Total Bilirubin Direct Bilirubin AST ALT Alkaline Phosphatase Ammonia (9-33) umol/L Troponin I Total Protein Albumin Globulin Albumin/Globulin Ratio TSH 3rd Generation (0.46-4.68) mIU/ML Arterial Blood Potassium (3.6-5.2) mmol/L Laboratory Results - last 24 hr 09/13/18 09/13/18 09/13/18 00:25 00:25 00:25 WBC Cancelled RBC Cancelled Hgb Cancelled Hct Cancelled MCV Cancelled MCH Cancelled MCHC Cancelled RDW Cancelled Plt Count Cancelled MPV Neut % (Auto) Lymph % (Auto) Baxter % (Auto) Eos % (Auto) Baso % (Auto) Neut # (Auto) Lymph # (Auto) Baxter # (Auto) Eos # (Auto) Baso # (Auto) Neutrophils % (Manual) Lymphocytes % (Manual) Monocytes % (Manual) Platelet Estimate Large Platelets Anisocytosis (manual) Macrocytosis (manual) Ovalocytes PT Cancelled INR Cancelled APTT Cancelled pCO2 pO2 HCO3 ABG pH ABG Total CO2 ABG O2 Saturation ABG O2 Content ABG Base Excess ABG Hemoglobin ABG Carboxyhemoglobin POC ABG HHb (Measured) ABG Methemoglobin ABG O2 Capacity Davy Test ABG Potassium A-a O2 Difference Hgb O2 Saturation Glucose Lactate Vent Mode Mechanical Rate FiO2 Tidal Volume PEEP Crit Value Called To Crit Value Called By Crit Value Read Back Blood Gas Notified Time Sodium Cancelled Potassium Cancelled Chloride Cancelled Carbon Dioxide Cancelled Anion Gap Cancelled BUN Cancelled Creatinine Cancelled Est GFR ( Amer) Cancelled Est GFR (Non-Af Amer) Cancelled Random Glucose Cancelled Lactic Acid Calcium Cancelled Magnesium Cancelled Total Bilirubin Cancelled Direct Bilirubin Cancelled AST Cancelled ALT Cancelled Alkaline Phosphatase Cancelled Ammonia Troponin I Cancelled Total Protein Cancelled Albumin Cancelled Globulin Cancelled Albumin/Globulin Ratio Cancelled TSH 3rd Generation Arterial Blood Potassium 09/13/18 09/13/18 09/13/18 00:25 13:50 13:50 WBC 23.5 H RBC 4.86 Hgb 14.4 Hct 43.5 MCV 89.5 MCH 29.7 MCHC 33.1 RDW 14.2 Plt Count 240 MPV Neut % (Auto) Lymph % (Auto) Baxter % (Auto) Eos % (Auto) Baso % (Auto) Neut # (Auto) Lymph # (Auto) Baxter # (Auto) Eos # (Auto) Baso # (Auto) Neutrophils % (Manual) Lymphocytes % (Manual) Monocytes % (Manual) Platelet Estimate Large Platelets Anisocytosis (manual) Macrocytosis (manual) Ovalocytes PT INR APTT pCO2 pO2 HCO3 ABG pH ABG Total CO2 ABG O2 Saturation ABG O2 Content ABG Base Excess ABG Hemoglobin ABG Carboxyhemoglobin POC ABG HHb (Measured) ABG Methemoglobin ABG O2 Capacity Davy Test ABG Potassium A-a O2 Difference Hgb O2 Saturation Glucose Lactate Vent Mode Mechanical Rate FiO2 Tidal Volume PEEP Crit Value Called To Crit Value Called By Crit Value Read Back Blood Gas Notified Time Sodium 135 Potassium 3.8 Chloride 99 Carbon Dioxide 19 L Anion Gap 21 H BUN 18 H Creatinine 1.1 Est GFR ( Amer) 58 Est GFR (Non-Af Amer) 48 Random Glucose 222 H Lactic Acid Cancelled Calcium 8.3 L Magnesium 2.0 Total Bilirubin 0.6 Direct Bilirubin AST 1722 H ALT 239 H Alkaline Phosphatase 115 Ammonia Troponin I Total Protein 7.5 Albumin 4.0 Globulin 3.5 Albumin/Globulin Ratio 1.2 TSH 3rd Generation 4.70 H Arterial Blood Potassium 09/13/18 09/13/18 09/14/18 17:41 21:45 00:20 WBC 18.7 H RBC 3.81 Hgb 10.9 L D Hct 34.6 MCV 90.7 MCH 28.6 MCHC 31.6 L RDW 14.0 Plt Count 155 MPV 10.2 Neut % (Auto) 84.3 H Lymph % (Auto) 12.2 L Baxter % (Auto) 3.3 Eos % (Auto) 0.0 Baso % (Auto) 0.2 Neut # (Auto) 15.8 H Lymph # (Auto) 2.3 Baxter # (Auto) 0.6 Eos # (Auto) 0.0 Baso # (Auto) 0.0 Neutrophils % (Manual) Lymphocytes % (Manual) Monocytes % (Manual) Platelet Estimate Large Platelets Anisocytosis (manual) Macrocytosis (manual) Ovalocytes PT INR APTT pCO2 45 43 pO2 116 H 129 H HCO3 19.6 L 19.5 L ABG pH 7.26 L 7.27 L ABG Total CO2 21.6 L 21.0 L ABG O2 Saturation 99.2 H 99.0 H ABG O2 Content 17.0 ABG Base Excess -6.8 L -6.9 L ABG Hemoglobin 12.3 ABG Carboxyhemoglobin 0.9 POC ABG HHb (Measured) 1.0 ABG Methemoglobin 1.1 ABG O2 Capacity 17.2 Davy Test Yes Yes ABG Potassium 4.1 A-a O2 Difference 541.0 530.0 Hgb O2 Saturation 97.0 Glucose 144 H Lactate 4.4 H* Vent Mode A/c A/c Mechanical Rate 24 24 FiO2 100.0 100.0 Tidal Volume 500 500 PEEP 5 5 Crit Value Called To Dr behzad briggs Crit [place] By 6003 Crit Value Read Back Y Blood Gas Notified Time 1744 Sodium 134.0 Potassium Chloride 102.0 Carbon Dioxide Anion Gap BUN Creatinine Est GFR ( Amer) Est GFR (Non-Af Amer) Random Glucose Lactic Acid Calcium Magnesium Total Bilirubin Direct Bilirubin AST ALT Alkaline Phosphatase Ammonia Troponin I Total Protein Albumin Globulin Albumin/Globulin Ratio TSH 3rd Generation Arterial Blood Potassium 4.1 09/14/18 09/14/18 09/14/18 00:20 00:20 00:20 WBC RBC Hgb Hct MCV MCH MCHC RDW Plt Count MPV Neut % (Auto) Lymph % (Auto) Baxter % (Auto) Eos % (Auto) Baso % (Auto) Neut # (Auto) Lymph # (Auto) Baxter # (Auto) Eos # (Auto) Baso # (Auto) Neutrophils % (Manual) Lymphocytes % (Manual) Monocytes % (Manual) Platelet Estimate Large Platelets Anisocytosis (manual) Macrocytosis (manual) Ovalocytes PT 13.2 H INR 1.2 APTT 38.1 H pCO2 pO2 HCO3 ABG pH ABG Total CO2 ABG O2 Saturation ABG O2 Content ABG Base Excess ABG Hemoglobin ABG Carboxyhemoglobin POC ABG HHb (Measured) ABG Methemoglobin ABG O2 Capacity Davy Test ABG Potassium A-a O2 Difference Hgb O2 Saturation Glucose Lactate Vent Mode Mechanical Rate FiO2 Tidal Volume PEEP Crit Value Called To Crit Value Called By Crit Value Read Back Blood Gas Notified Time Sodium 132 Potassium 4.3 Chloride 98 Carbon Dioxide 18 L Anion Gap 20 BUN 25 H Creatinine 1.6 H Est GFR ( Amer) 38 Est GFR (Non-Af Amer) 31 Random Glucose 270 H Lactic Acid 10.0 H* Calcium 7.8 L Magnesium 2.2 Total Bilirubin 0.4 Direct Bilirubin 0.3 AST 1290 H ALT 177 H D Alkaline Phosphatase 68 Ammonia Troponin I 659.0000 H* Total Protein 5.3 L Albumin 2.6 L D Globulin 2.7 Albumin/Globulin Ratio 1.0 TSH 3rd Generation Arterial Blood Potassium 09/14/18 09/14/18 09/14/18 01:43 06:10 06:10 WBC 20.2 H RBC 3.91 Hgb 11.4 L Hct 34.7 MCV 88.8 MCH 29.1 MCHC 32.8 L RDW 14.1 Plt Count 163 MPV 10.1 Neut % (Auto) 88.0 H Lymph % (Auto) 8.7 L Baxter % (Auto) 3.2 Eos % (Auto) 0.0 Baso % (Auto) 0.1 Neut # (Auto) 17.8 H Lymph # (Auto) 1.8 Baxter # (Auto) 0.7 Eos # (Auto) 0.0 Baso # (Auto) 0.0 Neutrophils % (Manual) 92 H Lymphocytes % (Manual) 6 L Monocytes % (Manual) 2 Platelet Estimate Normal Large Platelets Present Anisocytosis (manual) Slight Macrocytosis (manual) Slight Ovalocytes Moderate PT 13.4 H INR 1.2 APTT 33.5 pCO2 35 pO2 120 H HCO3 14.5 L ABG pH 7.20 L ABG Total CO2 14.8 L ABG O2 Saturation 98.5 H ABG O2 Content 15.9 ABG Base Excess -13.4 L ABG Hemoglobin 11.5 L ABG Carboxyhemoglobin 0.7 POC ABG HHb (Measured) 1.5 ABG Methemoglobin 0.9 ABG O2 Capacity 16.1 Davy Test Yes ABG Potassium A-a O2 Difference 549.0 Hgb O2 Saturation 97.0 Glucose Lactate Vent Mode A/c Mechanical Rate 24 FiO2 100.0 Tidal Volume 500 PEEP 5 Crit Value Called To Dr kendall butler Crit Value Called By M Crit Value Read Back Y Blood Gas Notified Time 200 Sodium Potassium Chloride Carbon Dioxide Anion Gap BUN Creatinine Est GFR ( Amer) Est GFR (Non-Af Amer) Random Glucose Lactic Acid Calcium Magnesium Total Bilirubin Direct Bilirubin AST ALT Alkaline Phosphatase Ammonia Troponin I Total Protein Albumin Globulin Albumin/Globulin Ratio TSH 3rd Generation Arterial Blood Potassium 09/14/18 09/14/18 09/14/18 06:10 06:10 06:11 WBC RBC Hgb Hct MCV MCH MCHC RDW Plt Count MPV Neut % (Auto) Lymph % (Auto) [place] % (Auto) Eos % (Auto) Baso % (Auto) Neut # (Auto) Lymph # (Auto) [place] # (Auto) Eos # (Auto) Baso # (Auto) Neutrophils % (Manual) Lymphocytes % (Manual) Monocytes % (Manual) Platelet Estimate Large Platelets Anisocytosis (manual) Macrocytosis (manual) Ovalocytes PT INR APTT pCO2 28 L pO2 177 H HCO3 14.7 L ABG pH 7.26 L ABG Total CO2 13.5 L ABG O2 Saturation 99.5 H ABG O2 Content 16.3 ABG Base Excess -13.1 L ABG Hemoglobin 11.6 L ABG Carboxyhemoglobin 1.0 POC ABG HHb (Measured) 0.5 ABG Methemoglobin 1.1 ABG O2 Capacity 16.4 Davy Test Yes ABG Potassium A-a O2 Difference 501.0 Hgb O2 Saturation 97.4 Glucose Lactate Vent Mode A/c Mechanical Rate 24 FiO2 100.0 Tidal Volume 500 PEEP 5 Crit Value Called To Crit Value Called By Crit Value Read Back Blood Gas Notified Time Sodium 129 L Potassium 4.9 Chloride 99 Carbon Dioxide 17 L Anion Gap 18 BUN 28 H Creatinine 1.7 H Est GFR ( Amer) 35 Est GFR (Non-Af Amer) 29 Random Glucose 125 H Lactic Acid 7.6 H* Calcium 8.2 L Magnesium 2.0 Total Bilirubin 0.9 Direct Bilirubin 0.0 AST 1312 H ALT 188 H Alkaline Phosphatase 70 Ammonia Troponin I 484.0000 H* Total Protein 5.7 L Albumin 2.9 L Globulin 2.8 Albumin/Globulin Ratio 1.0 TSH 3rd Generation Arterial Blood Potassium 09/14/18 12:30 WBC RBC Hgb Hct MCV MCH MCHC RDW Plt Count MPV Neut % (Auto) Lymph % (Auto) [place] % (Auto) Eos % (Auto) Baso % (Auto) Neut # (Auto) Lymph # (Auto) [place] # (Auto) Eos # (Auto) Baso # (Auto) Neutrophils % (Manual) Lymphocytes % (Manual) Monocytes % (Manual) Platelet Estimate Large Platelets Anisocytosis (manual) Macrocytosis (manual) Ovalocytes PT INR APTT pCO2 pO2 HCO3 ABG pH ABG Total CO2 ABG O2 Saturation ABG O2 Content ABG Base Excess ABG Hemoglobin ABG Carboxyhemoglobin POC ABG HHb (Measured) ABG Methemoglobin ABG O2 Capacity Davy Test ABG Potassium A-a O2 Difference Hgb O2 Saturation Glucose Lactate Vent Mode Mechanical Rate FiO2 Tidal Volume PEEP Crit Value Called To Crit Value Called By Crit Value Read Back Blood Gas Notified Time Sodium Potassium Chloride Carbon Dioxide Anion Gap BUN Creatinine Est GFR ( Amer) Est GFR (Non-Af Amer) Random Glucose Lactic Acid Calcium Magnesium Total Bilirubin Direct Bilirubin AST ALT Alkaline Phosphatase Ammonia 25 Troponin I Total Protein Albumin Globulin Albumin/Globulin Ratio TSH 3rd Generation Arterial Blood Potassium Radiology Impressions: Radiology Impressions Chest X-Ray 09/13/18 13:11 IMPRESSION: Bilateral infiltrates are suggested at the bases though atelectasis may be present at the left. Mid right sided pulmonary infiltrate evident. Limited underlying pulmonary vascular congestion is not excluded. Further clinical correlation is advised. ET tube terminates well above the osmar and advancement 2-3 cm is advised follow-up by confirmation radiography. EKG/Cardiology Studies: Cardiology / EKG Studies 09/14/18 EKG [ELECTROCARDIOGRAM] Stat Comment: Mode Of Transportation: PORTABLE Reason For Exam: Recent ND Fingerstick Blood Sugar Results: 169 <Angel Luis Rocha - Last Filed: 09/14/18 16:20> Assessment/Plan - Assessment and Plan (Free Text) Plan: Attestation: Time spent with this patient did not overlap with any other provider's medical or critical care time. Additionally the code selected for the services rendered in this note includes the time spent: talking to the patients family, associated physicians and reviewing hospital data/results not listed here which extended to a total of 40 minutes of critical care. Patient seen and examined at the bedside with Resident Dr. Jefferson Quinn; and I agree with her outline of plans and management documented above as discussed on AM rounds; reflecting my review of all applicable clinical data, and participation in the care of the patient throughout the day in ICU; today, September 14, 2018. Interim ICU notes and ER eval notes from last admission to this present admission reviewed. Presently undergoing TTM at 36C since approx. 100PM yesterday. Daughters at the bedside and state that she opens eyes to verbal; stimuli, but rhythmic decorticate-like arm motions and leg movements noted, not obviously tremors, shivering or focal seizure activity. Movements are in sync with respirations, which according to Nursing were more pronounced yesterday prompting initiation of Propofol sedation during the induction of cooling. Bradycardia (sinus) at 48/min with pronounced ST elevation noted on Telemetry monitoring. Breathing at 31/min, on AC 24, TV 500ml, 80% PEEP5, SPO2 93%. Cardio eval by Dr. Marte noted and reviewed. Consider repeat CT Brain imaging post TTM, to assess for any anoxic encephalopathy. Dobutamine added to augment BP and to keep MAP at or above 80 during TTM, otherwise remains on N orepinephrine. Integrilin, ASA, Statin, as per Cardio. Mention made of possible 2nd look Cath procedure when feasible. Await bedside ECHO. If still vasopressor dependent post - TTM, may represent cardiogenic shock, and may require further aggressive therapy re-cath, IABP, etc.
--- NOTE | 2018-09-14 10:17 | CP.PCM.CON ---
History of Present Illness - History of Present Illness History of Present Illness: This 78-year-old female was brought to the emergency room at [facility] after emergency medical research scientist were urgently summoned when she was found unresponsive by her family. (This history was obtained from her daughter who was at bedside. According to her, the patient was told of having borderline hyperglycemia number of years back and had refused to take any medications and also was told of hypertension for which she had declined to take any medications.) The family is uncertain how long the patient was unresponsive before the emergency medical research scientist were called. In the emergency room at [facility] the patient was promptly intubated and and her electrocardiogram showed a pattern of ST elevation myocardial infarction. Initially there were no plans to carry out a coronary angiogram but eventually she was taken to [facility] where right coronary artery and LAD were stented. The patient was transferred to this institution for hypothermia treatment. This morning the patient continues unresponsive to loud calling or painful stimuli and has exhibited decorticate rigidity during last 12 to 14 hours. She does not have spontaneous respiration. She displays sinus rhythm at 58 bpm and regular. Her blood pressure was 106/70 mmHg. Her jugular venous pressure was not elevated there was no edema over her lower extremities. Extremities were warm and nailbeds were pink. There was no central or peripheral cyanosis. There was no clubbing. The first and second heart sounds were normal. There were no rales. Her urine output was noted. Labs were noted. 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 Acute ST segment elevation OK with status post coronary stenting of LAD and right coronary artery. The patient at this juncture is hemodynamically stable. Her prognosis largely depends on the degree of anoxic encephalopathy and I have discussed her case with the graphics software engineer and recommended urgent neurological evaluation. I have also discussed this fact with her daughter. Past Patient History - Past Medical History & Family History Past Medical History?: Yes - Past Social History Smoking Status: Never Smoked - CARDIAC Hx Cardiac Disorders: Yes Hx Hypertension: Yes - PULMONARY Hx Respiratory Disorders: Yes Hx Pneumonia: Yes - NEUROLOGICAL Hx Neurological Disorder: No - HEENT Hx HEENT Problems: No - RENAL Hx Chronic Kidney Disease: No - ENDOCRINE/METABOLIC Hx Endocrine Disorders: No - HEMATOLOGICAL/ONCOLOGICAL Hx Blood Disorders: No Hx AIDS: No Hx Human Immunodeficiency Virus (HIV): No - INTEGUMENTARY Hx Dermatological Problems: No - MUSCULOSKELETAL/RHEUMATOLOGICAL Hx Falls: No - GASTROINTESTINAL Hx Gastrointestinal Disorders: No - GENITOURINARY/GYNECOLOGICAL Hx Genitourinary Disorders: No - PSYCHIATRIC Hx Substance Use: No - SURGICAL HISTORY Hx Surgeries: No - ANESTHESIA Hx Anesthesia: No Meds Allergies/Adverse Reactions: Allergies Allergy/AdvReac Type Severity Reaction Status Date / Time No Known Allergies Allergy Verified 09/13/18 06:31 - Medications Medications: Current Medications Aspirin (Aspirin Chewable) 81 mg PO DAILY [facility] Last Admin: 09/14/18 08:12 Dose: 81 mg Clopidogrel Bisulfate (Plavix) 75 mg PO DAILY [facility] Last Admin: 09/14/18 08:12 Dose: 75 mg Dextrose (Dextrose 50% Inj) 0 ml IV STAT PRN; Protocol PRN Reason: Hypoglycemia Protocol Dextrose (Glutose 15) 0 gm PO ONCE PRN; Protocol PRN Reason: Hypoglycemia Protocol Glucagon (Glucagen Diagnostic Kit) 0 mg IM STAT PRN; Protocol PRN Reason: Hypoglycemia Protocol Propofol (Diprivan) 1,000 mg in 100 mls @ 1.769 mls/hr IV .Q24H THU; Protocol Stop: 09/14/18 14:56 Last Admin: 09/13/18 15:00 Dose: 5 mcg/kg/min, 1.769 mls/hr Eptifibatide (Integrilin) 75 mg in 100 mls @ 9.435 mls/hr IV .[id number] THU; Protocol Last Admin: 09/14/18 03:00 Dose: 9.435 mls/hr Piperacillin Sod/Tazobactam (Sod 3.375 gm/ Sodium Chloride) 100 mls @ 100 mls/hr IVPB Q6 THU; Protocol Last Admin: 09/14/18 09:00 Dose: 100 mls/hr Sodium Chloride (Sodium Chloride 0.9%) 250 mls @ 250 mls/hr IV .Q1H THU Stop: 09/14/18 19:54 Last Admin: 09/13/18 20:00 Dose: 250 mls/hr Lactated Ringer's (Lactated Ringer's) 1,000 mls @ 150 mls/hr IV .Q6H40M THU Last Admin: 09/14/18 06:15 Dose: 150 mls/hr Norepinephrine Bitartrate 8 mg (/ Dextrose) 258 mls @ 19.35 mls/hr IV .[id number] ONE; Protocol Stop: 09/14/18 19:42 Last Titration: 09/14/18 09:19 Dose: 12.5 mcg/min, 24.19 mls/hr Insulin Human Regular (Humulin R) 2 units SC ACCU-CHECK THU; Protocol Last Admin: 09/14/18 06:18 Dose: 1 unit Pantoprazole Sodium (Protonix Inj) 40 mg IVP DAILY [facility] Last Admin: 09/14/18 08:06 Dose: 40 mg Results - Vital Signs Recent Vital Signs: Last Vital Signs Temp 91.6 F L 09/14/18 10:00 Pulse 42 L 09/14/18 10:00 Resp 25 H 09/14/18 10:00 BP 122/92 H 09/14/18 10:00 Pulse Ox 94 L 09/14/18 10:00 - Labs Result Diagrams: 09/14/18 06:10 09/14/18 06:10 Labs: Laboratory Results - last 24 hr 09/13/18 09/13/18 09/13/18 00:25 00:25 00:25 WBC Cancelled RBC Cancelled Hgb Cancelled Hct Cancelled MCV Cancelled MCH Cancelled MCHC Cancelled RDW Cancelled Plt Count Cancelled MPV Neut % (Auto) Lymph % (Auto) [place] % (Auto) Eos % (Auto) Baso % (Auto) Neut # (Auto) Lymph # (Auto) [place] # (Auto) Eos # (Auto) Baso # (Auto) Neutrophils % (Manual) Lymphocytes % (Manual) Monocytes % (Manual) Platelet Estimate Large Platelets Anisocytosis (manual) Macrocytosis (manual) Ovalocytes PT Cancelled INR Cancelled APTT Cancelled pCO2 pO2 HCO3 ABG pH ABG Total CO2 ABG O2 Saturation ABG O2 Content ABG Base Excess ABG Hemoglobin ABG Carboxyhemoglobin POC ABG HHb (Measured) ABG Methemoglobin ABG O2 Capacity Davy Test ABG Potassium A-a O2 Difference Hgb O2 Saturation Glucose Lactate Vent Mode Mechanical Rate FiO2 Tidal Volume PEEP Crit Value Called To Crit Value Called By Crit Value Read Back Blood Gas Notified Time Sodium Cancelled Potassium Cancelled Chloride Cancelled Carbon Dioxide Cancelled Anion Gap Cancelled BUN Cancelled Creatinine Cancelled Est GFR ( Amer) Cancelled Est GFR (Non-Af Amer) Cancelled Random Glucose Cancelled Lactic Acid Calcium Cancelled Magnesium Cancelled Total Bilirubin Cancelled Direct Bilirubin Cancelled AST Cancelled ALT Cancelled Alkaline Phosphatase Cancelled Ammonia Troponin I Cancelled Total Protein Cancelled Albumin Cancelled Globulin Cancelled Albumin/Globulin Ratio Cancelled TSH 3rd Generation Arterial Blood Potassium 09/13/18 09/13/18 09/13/18 00:25 13:50 13:50 WBC 23.5 H RBC 4.86 Hgb 14.4 Hct 43.5 MCV 89.5 MCH 29.7 MCHC 33.1 RDW 14.2 Plt Count 240 MPV Neut % (Auto) Lymph % (Auto) [place] % (Auto) Eos % (Auto) Baso % (Auto) Neut # (Auto) Lymph # (Auto) [place] # (Auto) Eos # (Auto) Baso # (Auto) Neutrophils % (Manual) Lymphocytes % (Manual) Monocytes % (Manual) Platelet Estimate Large Platelets Anisocytosis (manual) Macrocytosis (manual) Ovalocytes PT INR APTT pCO2 pO2 HCO3 ABG pH ABG Total CO2 ABG O2 Saturation ABG O2 Content ABG Base Excess ABG Hemoglobin ABG Carboxyhemoglobin POC ABG HHb (Measured) ABG Methemoglobin ABG O2 Capacity Davy Test ABG Potassium A-a O2 Difference Hgb O2 Saturation Glucose Lactate Vent Mode Mechanical Rate FiO2 Tidal Volume PEEP Crit Value Called To Crit Value Called By Crit Value Read Back Blood Gas Notified Time Sodium 135 Potassium 3.8 Chloride 99 Carbon Dioxide 19 L Anion Gap 21 H BUN 18 H Creatinine 1.1 Est GFR ( Amer) 58 Est GFR (Non-Af Amer) 48 Random Glucose 222 H Lactic Acid Cancelled Calcium 8.3 L Magnesium 2.0 Total Bilirubin 0.6 Direct Bilirubin AST 1722 H ALT 239 H Alkaline Phosphatase 115 Ammonia Troponin I Total Protein 7.5 Albumin 4.0 Globulin 3.5 Albumin/Globulin Ratio 1.2 TSH 3rd Generation 4.70 H Arterial Blood Potassium 09/13/18 09/13/18 09/14/18 17:41 21:45 00:20 WBC 18.7 H RBC 3.81 Hgb 10.9 L D Hct 34.6 MCV 90.7 MCH 28.6 MCHC 31.6 L RDW 14.0 Plt Count 155 MPV 10.2 Neut % (Auto) 84.3 H Lymph % (Auto) 12.2 L [place] % (Auto) 3.3 Eos % (Auto) 0.0 Baso % (Auto) 0.2 Neut # (Auto) 15.8 H Lymph # (Auto) 2.3 [place] # (Auto) 0.6 Eos # (Auto) 0.0 Baso # (Auto) 0.0 Neutrophils % (Manual) Lymphocytes % (Manual) Monocytes % (Manual) Platelet Estimate Large Platelets Anisocytosis (manual) Macrocytosis (manual) Ovalocytes PT INR APTT pCO2 45 43 pO2 116 H 129 H HCO3 19.6 L 19.5 L ABG pH 7.26 L 7.27 L ABG Total CO2 21.6 L 21.0 L ABG O2 Saturation 99.2 H 99.0 H ABG O2 Content 17.0 ABG Base Excess -6.8 L -6.9 L ABG Hemoglobin 12.3 ABG Carboxyhemoglobin 0.9 POC ABG HHb (Measured) 1.0 ABG Methemoglobin 1.1 ABG O2 Capacity 17.2 Davy Test Yes Yes ABG Potassium 4.1 A-a O2 Difference 541.0 530.0 Hgb O2 Saturation 97.0 Glucose 144 H Lactate 4.4 H* Vent Mode A/c A/c Mechanical Rate 24 24 FiO2 100.0 100.0 Tidal Volume 500 500 PEEP 5 5 Crit Value Called To Dr behzad briggs Crit Value Called By 6075 Crit Value Read Back Y Blood Gas Notified Time 1744 Sodium 134.0 Potassium Chloride 102.0 Carbon Dioxide Anion Gap BUN Creatinine Est GFR ( Amer) Est GFR (Non-Af Amer) Random Glucose Lactic Acid Calcium Magnesium Total Bilirubin Direct Bilirubin AST ALT Alkaline Phosphatase Ammonia Troponin I Total Protein Albumin Globulin Albumin/Globulin Ratio TSH 3rd Generation Arterial Blood Potassium 4.1 09/14/18 09/14/18 09/14/18 00:20 00:20 00:20 WBC RBC Hgb Hct MCV MCH MCHC RDW Plt Count MPV Neut % (Auto) Lymph % (Auto) [place] % (Auto) Eos % (Auto) Baso % (Auto) Neut # (Auto) Lymph # (Auto) [place] # (Auto) Eos # (Auto) Baso # (Auto) Neutrophils % (Manual) Lymphocytes % (Manual) Monocytes % (Manual) Platelet Estimate Large Platelets Anisocytosis (manual) Macrocytosis (manual) Ovalocytes PT 13.2 H INR 1.2 APTT 38.1 H pCO2 pO2 HCO3 ABG pH ABG Total CO2 ABG O2 Saturation ABG O2 Content ABG Base Excess ABG Hemoglobin ABG Carboxyhemoglobin POC ABG HHb (Measured) ABG Methemoglobin ABG O2 Capacity Davy Test ABG Potassium A-a O2 Difference Hgb O2 Saturation Glucose Lactate Vent Mode Mechanical Rate FiO2 Tidal Volume PEEP Crit Value Called To Crit Value Called By Crit Value Read Back Blood Gas Notified Time Sodium 132 Potassium 4.3 Chloride 98 Carbon Dioxide 18 L Anion Gap 20 BUN 25 H Creatinine 1.6 H Est GFR ( Amer) 38 Est GFR (Non-Af Amer) 31 Random Glucose 270 H Lactic Acid 10.0 H* Calcium 7.8 L Magnesium 2.2 Total Bilirubin 0.4 Direct Bilirubin 0.3 AST 1290 H ALT 177 H D Alkaline Phosphatase 68 Ammonia Troponin I 659.0000 H* Total Protein 5.3 L Albumin 2.6 L D Globulin 2.7 Albumin/Globulin Ratio 1.0 TSH 3rd Generation Arterial Blood Potassium 09/14/18 09/14/18 09/14/18 01:43 06:10 06:10 WBC 20.2 H RBC 3.91 Hgb 11.4 L Hct 34.7 MCV 88.8 MCH 29.1 MCHC 32.8 L RDW 14.1 Plt Count 163 MPV 10.1 Neut % (Auto) 88.0 H Lymph % (Auto) 8.7 L [place] % (Auto) 3.2 Eos % (Auto) 0.0 Baso % (Auto) 0.1 Neut # (Auto) 17.8 H Lymph # (Auto) 1.8 [place] # (Auto) 0.7 Eos # (Auto) 0.0 Baso # (Auto) 0.0 Neutrophils % (Manual) 92 H Lymphocytes % (Manual) 6 L Monocytes % (Manual) 2 Platelet Estimate Normal Large Platelets Present Anisocytosis (manual) Slight Macrocytosis (manual) Slight Ovalocytes Moderate PT 13.4 H INR 1.2 APTT 33.5 pCO2 35 pO2 120 H HCO3 14.5 L ABG pH 7.20 L ABG Total CO2 14.8 L ABG O2 Saturation 98.5 H ABG O2 Content 15.9 ABG Base Excess -13.4 L ABG Hemoglobin 11.5 L ABG Carboxyhemoglobin 0.7 POC ABG HHb (Measured) 1.5 ABG Methemoglobin 0.9 ABG O2 Capacity 16.1 Davy Test Yes ABG Potassium A-a O2 Difference 549.0 Hgb O2 Saturation 97.0 Glucose Lactate Vent Mode A/c Mechanical Rate 24 FiO2 100.0 Tidal Volume 500 PEEP 5 Crit Value Called To Dr kendall butler Crit Value Called By M Crit Value Read Back Y Blood Gas Notified Time 200 Sodium Potassium Chloride Carbon Dioxide Anion Gap BUN Creatinine Est GFR ( Amer) Est GFR (Non-Af Amer) Random Glucose Lactic Acid Calcium Magnesium Total Bilirubin Direct Bilirubin AST ALT Alkaline Phosphatase Ammonia Troponin I Total Protein Albumin Globulin Albumin/Globulin Ratio TSH 3rd Generation Arterial Blood Potassium 09/14/18 09/14/18 09/14/18 06:10 06:10 06:11 WBC RBC Hgb Hct MCV MCH MCHC RDW Plt Count MPV Neut % (Auto) Lymph % (Auto) [place] % (Auto) Eos % (Auto) Baso % (Auto) Neut # (Auto) Lymph # (Auto) [place] # (Auto) Eos # (Auto) Baso # (Auto) Neutrophils % (Manual) Lymphocytes % (Manual) Monocytes % (Manual) Platelet Estimate Large Platelets Anisocytosis (manual) Macrocytosis (manual) Ovalocytes PT INR APTT pCO2 28 L pO2 177 H HCO3 14.7 L ABG pH 7.26 L ABG Total CO2 13.5 L ABG O2 Saturation 99.5 H ABG O2 Content 16.3 ABG Base Excess -13.1 L ABG Hemoglobin 11.6 L ABG Carboxyhemoglobin 1.0 POC ABG HHb (Measured) 0.5 ABG Methemoglobin 1.1 ABG O2 Capacity 16.4 Davy Test Yes ABG Potassium A-a O2 Difference 501.0 Hgb O2 Saturation 97.4 Glucose Lactate Vent Mode A/c Mechanical Rate 24 FiO2 100.0 Tidal Volume 500 PEEP 5 Crit Value Called To Crit Value Called By Crit Value Read Back Blood Gas Notified Time Sodium 129 L Potassium 4.9 Chloride 99 Carbon Dioxide 17 L Anion Gap 18 BUN 28 H Creatinine 1.7 H Est GFR ( Amer) 35 Est GFR (Non-Af Amer) 29 Random Glucose 125 H Lactic Acid 7.6 H* Calcium 8.2 L Magnesium 2.0 Total Bilirubin 0.9 Direct Bilirubin 0.0 AST 1312 H ALT 188 H Alkaline Phosphatase 70 Ammonia Troponin I 484.0000 H* Total Protein 5.7 L Albumin 2.9 L Globulin 2.8 Albumin/Globulin Ratio 1.0 TSH 3rd Generation Arterial Blood Potassium 09/14/18 12:30 WBC RBC Hgb Hct MCV MCH MCHC RDW Plt Count MPV Neut % (Auto) Lymph % (Auto) [place] % (Auto) Eos % (Auto) Baso % (Auto) Neut # (Auto) Lymph # (Auto) [place] # (Auto) Eos # (Auto) Baso # (Auto) Neutrophils % (Manual) Lymphocytes % (Manual) Monocytes % (Manual) Platelet Estimate Large Platelets Anisocytosis (manual) Macrocytosis (manual) Ovalocytes PT INR APTT pCO2 pO2 HCO3 ABG pH ABG Total CO2 ABG O2 Saturation ABG O2 Content ABG Base Excess ABG Hemoglobin ABG Carboxyhemoglobin POC ABG HHb (Measured) ABG Methemoglobin ABG O2 Capacity Davy Test ABG Potassium A-a O2 Difference Hgb O2 Saturation Glucose Lactate Vent Mode Mechanical Rate FiO2 Tidal Volume PEEP Crit Value Called To Crit Value Called By Crit Value Read Back Blood Gas Notified Time Sodium Potassium Chloride Carbon Dioxide Anion Gap BUN Creatinine Est GFR ( Amer) Est GFR (Non-Af Amer) Random Glucose Lactic Acid Calcium Magnesium Total Bilirubin Direct Bilirubin AST ALT Alkaline Phosphatase Ammonia 25 Troponin I Total Protein Albumin Globulin Albumin/Globulin Ratio TSH 3rd Generation Arterial Blood Potassium
--- NOTE | 2018-09-14 11:07 | CARD ---
APPROVED REPORT Date of service: 09/14/2018 EKG Measurement Heart [id number] <Conclusion> Sinus bradycardia with 1st degree AV block Left axis deviation Anteroseptal infarct, possibly acute Prolonged QT ACUTE GA / STEMI Abnormal ECG
[2018-09-14 11:14] LABS: VENOUS BLOOD GAS BASE EXCESS -14.8 mmol/L (0.0-2.0); VENOUS BLOOD GAS PCO2 41 mmHg (40-60); VENOUS BLOOD GAS PO2 19 mm/Hg (30-55); VENOUS BLOOD PH 7.13 (7.32-7.43)
[2018-09-14] MEDS ORDERED: DOBUTamine 500mg/250ml D5W 500 MG/250 ML BAG IV SCH ×2 (11:45→22:00)
[2018-09-14 13:24] LABS: VENOUS BLOOD GAS BASE EXCESS -14.1 mmol/L (0.0-2.0); VENOUS BLOOD GAS PCO2 40 mmHg (40-60); VENOUS BLOOD GAS PO2 28 mm/Hg (30-55); VENOUS BLOOD PH 7.15 (7.32-7.43)
--- NOTE | 2018-09-14 14:21 | RAD ---
Date of service: 09/14/2018 HISTORY: Intubated. COMPARISON: September 13, 2018. FINDINGS: LUNGS: Improving pulmonary edema/aeration of the lungs. Persistent perihilar infiltrates which are asymmetrical right greater than left again identified. PLEURA: No significant pleural effusion identified, no pneumothorax apparent. CARDIOVASCULAR: Atherosclerotic calcifications identified primarily aortic arch. No significant interval change compared to the prior examination(s). OSSEOUS STRUCTURES: No significant abnormalities. VISUALIZED UPPER ABDOMEN: Normal. OTHER FINDINGS: Stable, satisfactory position ventilatory, nasogastric apparatus. IMPRESSION: Satisfactory position of support apparatus. Improving pulmonary edema.
[2018-09-14] MEDS ORDERED: Chlorhexidine Gluconate 1 APPL/PKT TP ONE (14:45)
--- NOTE | 2018-09-14 15:20 | CARD ---
APPROVED REPORT Date of service: 09/14/2018 EXAM: Two-dimensional and M-mode echocardiogram with Doppler and color Doppler. Other Information Quality : GoodRhythm : NSR INDICATION LV Function:SystolicDiastolic S/P CARDIAC ARREST Aortic Valve AoV Peak [id number]/sAoV VTI29.5cmAO Peak GR.15mmHg LVOT Peak Jymnznft00.6cm/sLVOT VTI17.91cmAO Mean GR.8mmHg AI P 1/2 [id number] Mitral Valve MV E Ovbavodg72.7cm/sMV DECEL [id number] A Abevbfcg58.6cm/s MV [id number]/A ratio0.7MVA (PHT)4.16cm2 TDI Lateral E' Peak V4.24cm/sMedial E' Peak V5.05cm/sE/Lateral E'16.2 E/Medial E'13.6 LEFT VENTRICLE The left ventricle is normal size. There is mild concentric left ventricular hypertrophy. The systolic function is moderately impaired. The estimated ejection fraction is 40-45%. There is mid and apical anterior wall hypokinesis. Transmitral Doppler flow pattern is Grade I-abnormal relaxation pattern. No left ventricle thrombus noted on this study. There is no ventricular septal defect visualized. There is no left ventricular aneurysm. There is no mass noted in the left ventricle. RIGHT VENTRICLE The right ventricle is normal size. There is normal right ventricular wall thickness. The right ventricular systolic function is normal. ATRIA The left atrium size is normal. The right atrium size is normal. The interatrial septum is intact with no evidence for an atrial septal defect. AORTIC VALVE The aortic valve is normal in structure. Moderate aortic regurgitation is present. There is no aortic valvular stenosis. There is no aortic valvular vegetation. MITRAL VALVE The mitral valve is normal in structure. There is no evidence of mitral valve prolapse. There is no mitral valve stenosis. There is no mitral valve regurgitation noted. TRICUSPID VALVE The tricuspid valve is normal in structure. There is no tricuspid valve regurgitation noted. There is no tricuspid valve prolapse or vegetation. There is no tricuspid valve stenosis. PULMONIC VALVE The pulmonary valve is normal in structure. There is no pulmonic valvular regurgitation. There is no pulmonic valvular stenosis. GREAT VESSELS The aortic root is normal in size. The ascending aorta is normal in size. The pulmonary artery is normal. The IVC is not visualized. PERICARDIAL EFFUSION There is no pericardial effusion. There is no pleural effusion. <Conclusion> Technically difficult study. There is mild concentric left ventricular hypertrophy. The systolic function is moderately impaired. The estimated ejection fraction is 40-45%. There is mid and apical anterior wall hypokinesis. Transmitral Doppler flow pattern is Grade I-abnormal relaxation pattern. The left atrium size is normal. Moderate aortic regurgitation is present. There is no tricuspid valve regurgitation noted. The IVC is not visualized.
[2018-09-14] MEDS ORDERED: Sodium Chloride 0.9% 500 ML IV ONE (23:33)
[2018-09-15] MEDS ORDERED: Phenylephrine 30 MG in Sodium Chloride 0.9% 250 ML IV SCH (00:30)
[2018-09-15] MEDS: Piperacillin/Tazobact 3.375 GM in Sodium Chloride 0.9% 100 ML IVPB SCH (03:28)
[2018-09-15] MEDS ORDERED: DOBUTamine 500mg/250ml D5W 500 MG/250 ML BAG IV SCH (04:00)
[2018-09-15 05:05] LABS: ABG ALLEN TEST YES; ARTERIAL BLOOD GAS HCO3 19.5 mmol/L (21-28); ARTERIAL BLOOD GAS HEMOGLOBIN 8.8 g/dL (11.7-17.4); ARTERIAL BLOOD GAS O2 CAPACITY 12.4 mL/dL (16-24); ARTERIAL BLOOD GAS O2 CONTENT 12.3 ML/dL (15-23); ARTERIAL BLOOD GAS PCO2 22 mm/Hg (35-45); ARTERIAL BLOOD GAS PH 7.46 (7.35-7.45); ARTERIAL BLOOD GAS PO2 94 mm/Hg (80-100); ARTERIAL BLOOD GAS TCO2 16.3 mmol/L (22-28)
[2018-09-15 06:08] LABS: VENOUS BLOOD GAS BASE EXCESS -7.1 mmol/L (0.0-2.0); VENOUS BLOOD GAS PCO2 29 mmHg (40-60); VENOUS BLOOD GAS PO2 37 mm/Hg (30-55); VENOUS BLOOD PH 7.37 (7.32-7.43)
[2018-09-15 06:40] LABS: EOS % 0.4 % (0.0-4.0); HEMOGLOBIN 8.1 g/dL (12.0-16.0); LYMPH # 1.1 K/uL (1.0-4.3); LYMPH % 10.9 % (20.0-40.0); MEAN CELL VOLUME 87.1 fl (81.0-99.0); MEAN CORPUSCULAR HEMOGLOBIN 29.2 pg (27.0-31.0); MEAN CORPUSCULAR HGB CONC 33.5 g/dL (33.0-37.0); MEAN PLATELET VOLUME 11.2 fl (7.2-11.7); MONO # 0.3 K/uL (0.0-0.8); MONO % 3.1 % (0.0-10.0); NEUT # 8.6 K/uL (1.8-7.0); NEUT % 85.6 % (50.0-75.0); RBC 2.77 Mil/uL (3.80-5.20); RED CELL DISTRIBUTION WIDTH 14.1 % (11.5-14.5); WHITE BLOOD COUNT 10.1 K/uL (4.8-10.8)
[2018-09-15 06:55] LABS: CALCIUM 7.1 mg/dL (8.4-10.2)
[2018-09-15] MEDS: Insulin Regular 100 units/ml SC SCH (07:14)
--- NOTE | 2018-09-15 07:51 | RAD ---
Date of service: 09/15/2018 HISTORY: intubated COMPARISON: Portable chest 09/14/2018. TECHNIQUE: 1 view obtained. FINDINGS: Endotracheal and nasogastric tubes are not significantly changed in position. LUNGS: There is a further reduction in right perihilar infiltrate, borderline at the left. PLEURA: No significant pleural effusion identified, no pneumothorax apparent. CARDIOVASCULAR: Calcific atherosclerotic changes are seen related to the thoracic aorta. Normal cardiac size. [id number]-[id number] pulmonary vascular congestion, once again improved. OSSEOUS STRUCTURES: No significant abnormalities. VISUALIZED UPPER ABDOMEN: Normal. OTHER FINDINGS: None. IMPRESSION: Further improvement in pulmonary edema which appears [id number] severity at this time with diminished right perihilar infiltrate, borderline at the left.
[2018-09-15 08:01] VITALS: BP 97/54; PULSE 58; RESP 24; TEMP 97; O2SAT 58
--- NOTE | 2018-09-15 08:57 | CP.PCM.PRO ---
Pronouncement of Note - Clinical Findings Physical Exam: Absent Peripheral Pulses{Carotid & Femoral}, Absent Heart & Breath Sounds, No Pupillary Light Reflex, No Corneal Reflex, Pupils Fixed & Dilated, Absence of Vital Signs - Pronouncement Time Time of Pronouncement of : 08:15 - Notifications Pronouncement Notifications: Family Notified, Atending Notified [place] Painter Notified: No - Autopsy Autopsy Requested: No - [place] [id number]
--- NOTE | 2018-09-15 10:55 | CP.CCUPN ---
CCU Subjective - Physician Review Subjective (Free Text): Code Blue Note: 3rd Code Event Code called for progressive bradycardia, quickly deteriorating to asystole. CPR / ACLS initiated again, high quality chest compressions ensured, multiple doses of Epi/ Atropine given as well as IV Bicarbonate. Best obtainable rhythm was PEA, manifest by wide QRS at 45/min, no pulses palpable even with Doppler US probe over the carotids. Given known RCA disease, multiple attempts at Transcutaneous pacing performed multiple times as well, with inability to obtain any captured beats despite MA up to 30-40 with rate 70/minute. Resuscitation events ensued over 40 minutes, Discussed patients current clinically poor response to vasoactive meds including Dopamine and Norepinephrine at free-flow rates with daughters and son-in-law. Family aware of poor prognosis and have requested no further resuscitation and to allow patient to pass in peace. Subsequently, patient pronounced at 815 AM; EDRS # [id number].
--- NOTE | 2018-09-16 13:17 | CP.PCM.HP ---
Past Patient History - Past Medical History & Family History Past Medical History?: Yes - Past Social History Smoking Status: Never Smoked - CARDIAC Hx Cardiac Disorders: Yes Hx Hypertension: Yes - PULMONARY Hx Respiratory Disorders: Yes Hx Pneumonia: Yes - NEUROLOGICAL Hx Neurological Disorder: No - HEENT Hx HEENT Problems: No - RENAL Hx Chronic Kidney Disease: No - ENDOCRINE/METABOLIC Hx Endocrine Disorders: No - HEMATOLOGICAL/ONCOLOGICAL Hx Blood Disorders: No Hx AIDS: No Hx Human Immunodeficiency Virus (HIV): No - INTEGUMENTARY Hx Dermatological Problems: No - MUSCULOSKELETAL/RHEUMATOLOGICAL Hx Falls: No - GASTROINTESTINAL Hx Gastrointestinal Disorders: No - GENITOURINARY/GYNECOLOGICAL Hx Genitourinary Disorders: No - PSYCHIATRIC Hx Substance Use: No - SURGICAL HISTORY Hx Surgeries: No - ANESTHESIA Hx Anesthesia: No Meds Allergies/Adverse Reactions: Allergies Allergy/AdvReac Type Severity Reaction Status Date / Time No Known Allergies Allergy Verified 09/13/18 06:31 Results - Vital Signs Recent Vital Signs: Last Vital Signs Temp 97 F L 09/15/18 07:00 Pulse 58 L 09/15/18 07:00 Resp 24 09/15/18 07:00 BP 97/54 L 09/15/18 07:00 Pulse Ox 58 L 09/15/18 07:00 - Labs Result Diagrams: 09/15/18 05:15 09/15/18 05:15
--- NOTE | 2018-09-16 13:18 | CP.PCM.DIS ---
Provider - Provider Date of Admission: 09/13/18 13:06 Attending physician: Sheila Kumar MD Consults: 09/13/18 14:22 Cardiology Consult Routine Comment: Consulting Provider: Yuniel Ramírez Consulting Physician: Yuniel Ramírez Reason for Consult: acute SD 09/13/18 15:29 Case Management Referral Routine Comment: Physician Instructions: Reason For Exam: Reason for Referral: Discharge Planning Nursing Referral for Wound Care Routine Comment: Physician Instructions: Reason For Exam: Miguelito-11 Social Work Referral Routine Comment: new admit Physician Instructions: Reason For Exam: new admit Hospital Course - Lab Results Lab Results: Micro Results 09/13/18 15:00 Naris MRSA Culture (Admit) - Final MRSA NOT DETECTED Most Recent Lab Values WBC 10.1 K/uL (4.8-10.8) 09/15/18 05:15 RBC 2.77 Mil/uL (3.80-5.20) L 09/15/18 05:15 Hgb 8.1 g/dL (12.0-16.0) L D 09/15/18 05:15 Hct 24.2 % (34.0-47.0) L 09/15/18 05:15 MCV 87.1 fl (81.0-99.0) 09/15/18 05:15 MCH 29.2 pg (27.0-31.0) 09/15/18 05:15 MCHC 33.5 g/dL (33.0-37.0) 09/15/18 05:15 RDW 14.1 % (11.5-14.5) 09/15/18 05:15 Plt Count 94 K/uL (130-400) L D 09/15/18 05:15 MPV 11.2 fl (7.2-11.7) 09/15/18 05:15 Neut % (Auto) 85.6 % (50.0-75.0) H 09/15/18 05:15 Lymph % (Auto) 10.9 % (20.0-40.0) L 09/15/18 05:15 Saunders % (Auto) 3.1 % (0.0-10.0) 09/15/18 05:15 Eos % (Auto) 0.4 % (0.0-4.0) 09/15/18 05:15 Baso % (Auto) 0.0 % (0.0-2.0) 09/15/18 05:15 Neut # (Auto) 8.6 K/uL (1.8-7.0) H 09/15/18 05:15 Lymph # (Auto) 1.1 K/uL (1.0-4.3) 09/15/18 05:15 Saunders # (Auto) 0.3 K/uL (0.0-0.8) 09/15/18 05:15 Eos # (Auto) 0.0 K/uL (0.0-0.7) 09/15/18 05:15 Baso # (Auto) 0.0 K/uL (0.0-0.2) 09/15/18 05:15 Neutrophils % (Manual) 92 % (42-75) H 09/14/18 06:10 Lymphocytes % (Manual) 6 % (20-50) L 09/14/18 06:10 Monocytes % (Manual) 2 % (0-10) 09/14/18 06:10 Platelet Estimate Normal (NORMAL) 09/14/18 06:10 Large Platelets Present 09/14/18 06:10 Anisocytosis (manual) Slight 09/14/18 06:10 Macrocytosis (manual) Slight 09/14/18 06:10 Ovalocytes Moderate 09/14/18 06:10 PT 13.4 Seconds (9.8-13.1) H 09/14/18 06:10 INR 1.2 09/14/18 06:10 APTT 33.5 Seconds (25.6-37.1) 09/14/18 06:10 pCO2 22 mm/Hg (35-45) L 09/15/18 04:49 pO2 94 mm/Hg (80-100) 09/15/18 04:49 HCO3 19.5 mmol/L (21-28) L 09/15/18 04:49 ABG pH 7.46 (7.35-7.45) H 09/15/18 04:49 ABG Total CO2 16.3 mmol/L (22-28) L 09/15/18 04:49 ABG O2 Saturation 99.0 % (95-98) H 09/15/18 04:49 ABG O2 Content 12.3 ML/dL (15-23) L 09/15/18 04:49 ABG Base Excess -7.0 mmol/L (-2.0-3.0) L 09/15/18 04:49 ABG Hemoglobin 8.8 g/dL (11.7-17.4) L 09/15/18 04:49 ABG Carboxyhemoglobin 0.6 % (0.5-1.5) 09/15/18 04:49 POC ABG HHb (Measured) 1.0 % (0.0-5.0) 09/15/18 04:49 ABG Methemoglobin 0.2 % (0.0-3.0) 09/15/18 04:49 ABG O2 Capacity 12.4 mL/dL (16-24) L 09/15/18 04:49 Davy Test Yes 09/15/18 04:49 ABG Potassium 4.1 mmol/L (3.6-5.2) 09/13/18 17:41 VBG pH 7.15 (7.32-7.43) L* 09/14/18 13:30 VBG pCO2 40 mmHg (40-60) 09/14/18 13:30 VBG HCO3 12.8 mmol/L 09/14/18 13:30 VBG Total CO2 15.1 mmol/L (22-28) L 09/14/18 13:30 VBG O2 Sat (Calc) 40.9 % (40-65) 09/14/18 13:30 VBG Base Excess -14.1 mmol/L (0.0-2.0) L 09/14/18 13:30 VBG Hgb O2 Saturation 22.0 % (95.0-98.0) L 09/14/18 10:58 VBG Potassium 3.7 mmol/L (3.6-5.2) 09/14/18 13:30 A-a O2 Difference 449.0 mm/Hg 09/15/18 04:49 Hemoglobin 10.4 g/dL (11.7-17.4) L 09/14/18 10:58 Hgb O2 Saturation 98.2 % (95.0-98.0) H 09/15/18 04:49 Sodium 133.0 mmol/L (132-148) 09/14/18 13:30 Chloride 104.0 mmol/L (98-107) 09/14/18 13:30 Glucose 121 mg/dL (65-105) H 09/14/18 13:30 Lactate 6.5 mmol/L (0.7-2.1) H* 09/14/18 13:30 Vent Mode A/c 09/15/18 04:49 Mechanical Rate 24 09/15/18 04:49 FiO2 80.0 % 09/15/18 04:49 Tidal Volume 500 09/15/18 04:49 PEEP 5 09/15/18 04:49 Crit Value Called To Dior alicia 09/14/18 13:30 Crit Value Called By 15 09/14/18 13:30 Crit Value Read Back Y 09/14/18 13:30 Blood Gas Notified Time 1324 09/14/18 13:30 Sodium 130 mmol/l (132-148) L 09/15/18 05:15 Potassium 3.8 MMOL/L (3.6-5.0) 09/15/18 05:15 Chloride 97 mmol/L (98-107) L 09/15/18 05:15 Carbon Dioxide 18 mmol/L (22-30) L 09/15/18 05:15 Anion Gap 19 (10-20) 09/15/18 05:15 BUN 42 mg/dl (7-17) H 09/15/18 05:15 Creatinine 2.2 mg/dl (0.7-1.2) H 09/15/18 05:15 Est GFR ( Amer) 26 09/15/18 05:15 Est GFR (Non-Af Amer) 09/15/18 05:15 POC Glucose (mg/dL) 215 mg/dL (65-110) H 09/15/18 05:24 Random Glucose 184 mg/dL (65-105) H 09/15/18 05:15 Lactic Acid 7.6 mmol/L (0.7-2.1) H* 09/14/18 06:10 Calcium 7.1 mg/dL (8.4-10.2) L 09/15/18 05:15 Magnesium 2.0 MG/DL (1.6-2.3) 09/14/18 06:10 Total Bilirubin 0.9 mg/dl (0.2-1.3) 09/14/18 06:10 Direct Bilirubin 0.0 mg/ml (0.0-0.4) 09/14/18 06:10 AST 1312 U/L (14-36) H 09/14/18 06:10 ALT 188 U/L (9-52) H 09/14/18 06:10 Alkaline Phosphatase 70 U/L (38-126) 09/14/18 06:10 Ammonia 25 umol/L (9-33) 09/14/18 12:30 Troponin I 357.0000 ng/mL (0.00-0.120) H* 09/14/18 13:35 Total Protein 5.7 G/DL (6.3-8.2) L 09/14/18 06:10 Albumin 2.9 g/dL (3.5-5.0) L 09/14/18 06:10 Globulin 2.8 gm/dL (2.2-3.9) 09/14/18 06:10 Albumin/Globulin Ratio 1.0 (1.0-2.1) 09/14/18 06:10 TSH 3rd Generation 4.70 mIU/ML (0.46-4.68) H 09/13/18 13:50 Arterial Blood Potassium 4.1 mmol/L (3.6-5.2) 09/13/18 17:41 Venous Blood Potassium 3.7 mmol/L (3.6-5.2) 09/14/18 13:30 Discharge Plan - Follow Up Plan Condition: GOOD Disposition: WITH WITHOUT AUTOPSY
== END 2018-09-15 08:15 ==
LOC: H.ICU/CCU 12:34 → UNDOADMIN 12:34 → H.ICU/CCU 13:06
PROVIDERS: ADMIT Internal Medicine; ATTEND Internal Medicine
PROC: 5A1945Z Respiratory Ventilation, 24-96 Consecutive Hours (ICD-10-PCS; 2018-09-13)
PROC: 3E0234Z Introduction of Serum, Toxoid and Vaccine into Muscle, Percutaneous Approach (ICD-10-PCS; 2018-09-13)
PROC: 06HY33Z Insertion of Infusion Device into Lower Vein, Percutaneous Approach (ICD-10-PCS; principal; 2018-09-14)
PROC: 5A12012 Performance of Cardiac Output, Single, Manual (ICD-10-PCS; 2018-09-15)
DX: I21.3 ST elevation (STEMI) myocardial infarction of unspecified site (principal); J96.01 Acute respiratory failure with hypoxia; J81.0 Acute pulmonary edema; G93.1 Anoxic brain damage, not elsewhere classified; J81.1 Chronic pulmonary edema; I46.9 Cardiac arrest, cause unspecified; R68.0 Hypothermia, not associated with low environmental temperature; I10 Essential (primary) hypertension; Z95.5 Presence of coronary angioplasty implant and graft; Z98.890 Other specified postprocedural states; Z23 Encounter for immunization; Z87.01 Personal history of pneumonia (recurrent)